=== PATIENT | female | born 1935 | race African-American/Black ===

== ENCOUNTER 2017-10-29 12:25 | Outpatient (CLI) | payer MEDICARE ==
[2017-10-29 14:11] LABS: #Basophils 0.1 thou/uL (0.0-0.2); #Eosinphils 0.2 thou/uL (0.0-0.7); #Lymphocytes 3.3 thou/uL (1.20-3.40); #Monocytes 0.6 thou/uL (0.11-0.59); #Neutrophils 3.9 thou/uL (1.40-6.50); %Basophils 1.1 % (0.0-1.0); %Eosinophils 2.5 % (0.0-10.0); %Lymphocytes 41.3 % (21.0-51.0); %Monocytes 7.2 % (0.0-10.0); Hemoglobin 12.1 g/dL (12.0-16.0); Mean Corpuscular HGB CONC 30.7 g/dL (32.0-36.0); Mean Corpuscular Hemoglobin 28.1 pg (27.0-31.0); Mean Corpuscular Volume 91.7 fl (81.0-99.0); Mean Platelet Volume 7.9 fL (7.4-10.4); Platelet Count 279 thou/uL (130-400); White Blood Cell (WBC) Count 8.1 thou/uL (4.8-10.8)
[2017-10-29 14:16] LABS: Bilirubin Negative (Negative); Blood, Urine Negative (Negative); Clarity CLOUDY (Clear); Glucose, Urine (Dipstick) Negative (Negative); Leukocyte Moderate (Negative); Nitrite Positive (Negative); Protein, Urine (Dipstick) Negative (Neg-Trace); Specific Gravity, Urine 1.019 (1.002-1.036); Urobilinogen 0.2 mg/dL (0.2-1.0); pH, Urine 5.5 (5.0-9.0)
[2017-10-29 14:18] LABS: INR-International Normal Ratio 1.2; Prothrombin Time 14.9 SEC (12.0-14.7)
[2017-10-29 14:21] LABS: Bacteria/HPF 4+ HPF (None Seen); Hyaline Casts/LPF 0-3 HYALINE CAST LPF (0-3 Hyaline); RBC/HPF 0-3 HPF (0-3); Squamous Epithelial 0-3 HPF (0-3); WBC/HPF 21-50 HPF (0-3)
[2017-10-29 14:42] LABS: Anion Gap 12 mmol/L (10-20); BUN (Urea Nitrogen) 9 mg/dL (9.8-20.1); Calc. Creatinine Clearance 0 mL/min (70-130); Calcium 9.8 mg/dL (7.8-10.44); Carbon Dioxide 23 mmol/L (23-31); Chloride 108 mmol/L (98-107); Estimated GFR-MDRD 78; Glucose 86 mg/dL (83-110); Potassium 4.1 mmol/L (3.5-5.1); Sodium 139 mmol/L (136-145)
== END 2017-10-29 12:26 | disposition home or self-care (01) ==
LOC: LABBT 12:25
PROVIDERS: ATTEND Orthopaedic Surgery
DX: Z01.812 Encounter for preprocedural laboratory examination (principal); Z01.818 Encounter for other preprocedural examination; M16.0 Bilateral primary osteoarthritis of hip
CPT/HCPCS: 80048; 81001; 85025; 85610; 87081; 93005; 93010

== ENCOUNTER 2018-05-08 13:03 | Outpatient (CLI) | payer MEDICARE ==
[2018-05-08 14:28] LABS: Bilirubin Negative (Negative); Blood, Urine Negative (Negative); Clarity CLEAR (Clear); Glucose, Urine (Dipstick) Negative (Negative); Leukocyte Small (Negative); Mean Corpuscular HGB CONC 31.5 g/dL (32.0-36.0); Mean Corpuscular Hemoglobin 27.2 pg (27.0-31.0); Mean Corpuscular Volume 86.3 fL (78.0-98.0); Mean Platelet Volume 8.5 fL (7.4-10.4); Nitrite Negative (Negative); Platelet Count 292 thou/uL (130-400); Protein, Urine (Dipstick) Negative (Neg-Trace); Red Blood Cell (RBC) Count 4.39 mill/uL (4.20-5.40); Specific Gravity, Urine 1.004 (1.002-1.036); Urobilinogen 0.2 mg/dL (0.2-1.0); White Blood Cell (WBC) Count 7.3 thou/uL (4.8-10.8); pH, Urine 6.5 (5.0-9.0)
[2018-05-08 14:29] LABS: Bacteria/HPF 4+ HPF (None Seen); Hyaline Casts/LPF 0-3 HYALINE CAST LPF (0-3 Hyaline); RBC/HPF 0-3 HPF (0-3); Squamous Epithelial 0-3 HPF (0-3)
[2018-05-08 14:35] LABS: Prothrombin Time 13.6 SEC (12.0-14.7)
[2018-05-08 14:46] LABS: Anion Gap 13 mmol/L (10-20); BUN (Urea Nitrogen) 12 mg/dL (9.8-20.1); Calc. Creatinine Clearance 0 mL/min (70-130); Calcium 9.7 mg/dL (7.8-10.44); Carbon Dioxide 25 mmol/L (23-31); Chloride 107 mmol/L (98-107); Estimated GFR-MDRD 67; Glucose 81 mg/dL (83-110); Potassium 4.2 mmol/L (3.5-5.1); Sodium 141 mmol/L (136-145)
== END 2018-05-08 13:04 | disposition home or self-care (01) ==
LOC: LABBT 13:03
PROVIDERS: ATTEND Orthopaedic Surgery
DX: Z01.812 Encounter for preprocedural laboratory examination (principal); M16.11 Unilateral primary osteoarthritis, right hip
CPT/HCPCS: 80048; 81001; 85027; 85610; 86850; 86900; 86901; 87081

== ENCOUNTER 2018-05-13 05:35 | Inpatient (IN) | payer MEDICARE ==
[2018-05-08 13:24] VITALS: BMI 26.1
[2018-05-13] MEDS ORDERED: Midazolam HCl 2 mg/2 ml Vial ONE (06:35)
[2018-05-13] MEDS ORDERED: Fentanyl 100 MCG/2 ML VIAL ONE ×4 (06:35→12:12)
[2018-05-13] MEDS ORDERED: Levofloxacin 500 mg/D5W 100 ml Premix Bag ONE (06:49)
[2018-05-13] MEDS ORDERED: CEFAZOLIN/Water 2 GM/20 ML SYRINGE ONE (06:53)
[2018-05-13] MEDS ORDERED: Lidocaine 1% (PF) 30 ML VIAL ONE (07:25)
[2018-05-13] MEDS ORDERED: PROPOFOL 20 ML ONE (07:25)
[2018-05-13] MEDS ORDERED: Succinylcholine Chloride 20 MG/ML 10 ml SYRINGE FS ONE ×2 (07:26→14:20)
[2018-05-13] MEDS ORDERED: HYDROmorphone 2 MG/ML VIAL ONE (07:31)
[2018-05-13 08:55] LABS: Bilirubin Negative (Negative); Blood, Urine Negative (Negative); Clarity CLEAR (Clear); Glucose, Urine (Dipstick) Negative (Negative); Leukocyte Trace (Negative); Nitrite Positive (Negative); Protein, Urine (Dipstick) Negative (Neg-Trace); Specific Gravity, Urine 1.017 (1.002-1.036); Urobilinogen 0.2 mg/dL (0.2-1.0); pH, Urine 5.5 (5.0-9.0)
[2018-05-13 08:57] LABS: Bacteria/HPF 4+ HPF (None Seen); Hyaline Casts/LPF 0-3 HYALINE CAST LPF (0-3 Hyaline); RBC/HPF None Seen HPF (0-3); Squamous Epithelial 0-3 HPF (0-3); WBC/HPF 0-3 HPF (0-3)
[2018-05-13] MEDS ORDERED: Tranexamic Acid 1,000 MG in Sodium Chloride 0.9% 100 ML IVPB SCH (10:15)
--- NOTE | 2018-05-13 11:05 | OP ---
DATE OF PROCEDURE: 05/13/2018 PREOPERATIVE DIAGNOSIS: Right hip osteoarthritis. POSTOPERATIVE DIAGNOSES: 1. Right hip osteoarthritis. 2. Greater trochanter fracture. PROCEDURE PERFORMED: 1. Right total hip arthroplasty. 2. Open reduction internal fixation right greater trochanter fracture. STAFF: Kasi Oconnor M.D. WINE CELLAR STOCK CLERK: Luis Melchor PA-C ANESTHESIA: Mayorga. The patient received a general endotracheal intubation. ESTIMATED BLOOD LOSS: 100 mL. TOURNIQUET TIME: None. IMPLANTS: A Jenn 52 mm cluster acetabular shell size 4 Accolade femur. A 10 degree Trident 36 mm polyethylene insert, 36 mm -5 femoral head and a Dall- Miles trochanteric plate with 2 cables side plate. COMPLICATIONS: Greater trochanter fracture; intraoperative complication HISTORY OF PRESENT ILLNESS: Ms. Gonzalez is an 83-year-old female who presented to me with right hip pain. She has had hip pain for years. She had a preoperative clearance by Cardiology. I discussed with the patient for surgery, the risks and benefits of a total hip arthroplasty to include scar, bleeding, infection, damage to vital structures, decreased range of motion or strength, continued pain despite surgical intervention, damage to vital structures, failure of procedure, loss of life or limb. The patient understood the risks and benefits and elected to proceed. PROCEDURE IN DETAIL: Timeout was performed designating the patient's right hip as the operative site based on site, consents, markings. After completion of timeout the patient was placed in lateral position with bony prominences well padded. She had a Cheng inserted. The right lower extremity was prepped and draped in sterile fashion. Lateral incision, came down through skin, down to the IT band, took down the gluteus medius and minimus, T'd the capsule, excised the capsule, dislocated the hip, cut the femoral head, gave myself a half a finger off of the lesser trochanter. We then removed the head, cleaned the labrum off the acetabulum, sequentially reamed up to 52 and 5, placed a 52 mm cup with a 36 10-degree Trident X3 poly liner. We then moved to the femur. We knocked off some inferior osteophyte to help with no risk of reduction. After we knocked the inferior osteophytes came down to transverse ligament. We removed those, we moved to our femur. We broached, starting up at 0, moving up to a 4 over sunk. We reduced it, felt like we had a good reduction of the calcar plane once and then again and I think during the calcar planing that there might have been a crack that formed in the greater trochanter which propagated, which was not noticed until we placed our final implant in place, reduced it into position. There was some instability; therefore I came back, we first put a Dall-Miles cable and claw which was too anterior, I felt like it was impinging, I took it off and took a more lateral one and ran down the side. I passed the wire under the lessor trochantor for thethe top wire and placed a second wire distally down in the shaft. I felt like we had good abutment, good stability with the cables. We then had reduced the hip, tightened it down and reduced and tied down the Dall-Miles cable, cut the cables. We then closed the gluteus minimus in the remnant and through the claw that we had gluteus love. We closed, to make sure we were able to get it to close over the top. We closed down to the entire soft tissue envelope. We then closed the IT band with #2 Quill and glue. We then closed the IT band with #2 Vicryl and #2 Quill, 0 Quill, 2-0 Quill and glue. The patient will be weightbearing as tolerated. The patient will be followed in -house. DEMOND
[2018-05-13] MEDS ORDERED: Promethazine HCl 25 MG/ML VIAL IM PRN ×3 (11:13→13:36)
[2018-05-13] MEDS ORDERED: Ondansetron HCl/PF 4 MG/2 ML Vial IVP PRN ×3 (11:13→13:36)
[2018-05-13] MEDS ORDERED: Promethazine HCl 25 MG/ML VIAL SLOW IVP PRN (11:13)
[2018-05-13] MEDS ORDERED: Acetaminophen 500 MG TAB PO PRN (12:24)
[2018-05-13] MEDS ORDERED: Hydrocerin (Eucerin) Cream 120 gm Jar TOP PRN (12:30)
[2018-05-13] MEDS ORDERED: diphenhydrAMINE 50 MG/ML VIAL IM PRN (12:30)
[2018-05-13] MEDS ORDERED: Zolpidem Tartrate 5 MG TAB PO PRN ×2 (12:30→13:36)
[2018-05-13] MEDS ORDERED: Promethazine HCl 25 MG SUPP PR PRN (12:30)
[2018-05-13] MEDS ORDERED: traMADol HCl 50 MG TAB PO PRN ×2 (12:30→13:36)
[2018-05-13] MEDS ORDERED: diphenhydrAMINE 50 MG/ML VIAL IVP PRN (12:30)
[2018-05-13] MEDS ORDERED: diphenhydrAMINE 25 MG CAP PO PRN ×2 (12:30→13:36)
[2018-05-13] MEDS ORDERED: Naloxone HCl 0.4 mg/ml Vial IVP PRN (12:30)
[2018-05-13] MEDS ORDERED: fentaNYL Citrate/PF 1,250 MCG, Bupivacaine 25 ML in Sodium Chloride 0.9% 250 ML 200 ML EPIDURAL SCH (12:30)
[2018-05-13] MEDS ORDERED: Bupivacaine 0.25% 10 ML VIAL EPIDURAL PRN (12:30)
[2018-05-13] MEDS ORDERED: Naloxone HCl 0.4 mg/ml Vial IV PRN (12:30)
--- NOTE | 2018-05-13 12:46 | RAD ---
PORTABLE RIGHT HIP SINGLE VIEW: FINDINGS: There are postop changes of total hip arthroplasty in the right hip, in good position and alignment. POS: [facility]
--- NOTE | 2018-05-13 12:49 | RAD ---
AP PELVIS ONE VIEW: History: 82-year-old female with history of pain since June, without trauma. FINDINGS: Total right hip replacement. Significant arthrosis and degenerative changes left hip joint. No eviden ce for dislocation or periprosthetic fracture seen on this single AP pelvis. IMPRESSION: Right total hip replacement without dislocation or overt periprosthetic fracture. No prior post hip r eplacement exams are available. POS: [facility]
[2018-05-13] MEDS ORDERED: Ferrous Gluconate 324 MG TAB PO SCH ×2 (13:36→14:30)
[2018-05-13] MEDS ORDERED: HYDROcodone/Acetaminophen 10/325 mg Tablet PO PRN ×2 (13:36)
[2018-05-13] MEDS ORDERED: Senokot S 8.6-50 MG TAB PO SCH ×2 (13:36→15:00)
[2018-05-13] MEDS ORDERED: Acetaminophen 325 MG TAB PO PRN (13:36)
[2018-05-13] MEDS ORDERED: Fentanyl 100 MCG/2 ML VIAL SLOW IVP PRN ×2 (13:36)
[2018-05-13] MEDS ORDERED: Aspirin 81 mg Enteric Coated Tablet PO SCH ×2 (13:36→14:30)
[2018-05-13] MEDS ORDERED: Multivitamin W/ Minerals 1 TAB PO SCH ×2 (13:36→15:00)
[2018-05-13] MEDS ORDERED: Bupivacaine HCl 0.5%/Epinephrine 1:200,000/PF 30 ml Vial ONE (13:40)
[2018-05-13] MEDS ORDERED: Ondansetron HCl/PF 4 MG/2 ML Vial ONE (14:20)
[2018-05-13] MEDS ORDERED: PROPOFOL 200 MG/20 ML VIAL ONE (14:20)
[2018-05-13] MEDS ORDERED: Dexamethasone 20 MG/5 ML VIAL ONE (14:20)
[2018-05-13] MEDS ORDERED: Lidocaine 1% PF 5 ML VIAL ONE (14:20)
[2018-05-13] MEDS ORDERED: PHENYLEPHRINE-NS 100 MCG/ML 10 ML SYRINGE ONE (14:20)
--- NOTE | 2018-05-13 15:39 | EKG ---
Test Reason : PREOP Blood Pressure : / mmHG Vent. Rate : 074 BPM Atrial Rate : 074 BPM P-R Int : 180 ms QRS Dur : 088 ms QT Int : 392 ms P-R-T Axes : 078 -02 035 degrees QTc Int : 435 ms Sinus rhythm with Premature atrial complexes and Premature ventricular complexes or Fusion complexes Otherwise normal ECG When compared with ECG of 29-OCT-2017 12:31, Fusion complexes are now Present Premature ventricular complexes are now Present Premature atrial complexes are now Present Borderline criteria for Anterior infarct are no longer Present Confirmed by MAYELA WIN, DR. Will (4) on 05/13/2018 3:38:51 PM Referred By: MICHAEL Confirmed By:DR. Suman PEDRO MD
[2018-05-13] MEDS: CEFAZOLIN/Water 2 GM/20 ML SYRINGE SLOW IVP SCH ×2 (16:25→23:31)
[2018-05-13] MEDS ORDERED: hydrALAZINE 20 MG/ML VIAL SLOW IVP PRN (17:01)
[2018-05-13] MEDS: Potassium Chloride 10 MEQ TAB PO SCH (17:26)
[2018-05-13] MEDS: Ketorolac Tromethamine 30 MG/ML VIAL IVP SCH (17:27)
--- NOTE | 2018-05-13 17:32 | PRG ---
DATE OF SERVICE: 05/13/2018 PRIMARY CARE PHYSICIAN: Dr. Gonzalez. PRIMARY WARRANTY CLERK: Dr. Cristobal Lowery. SUBJECTIVE: The patient denies any new complaints. Pain is controlled with current pain regimen. No chest pain, shortness of breath or palpitations. OBJECTIVE: VITAL SIGNS: Temperature 94.6, pulse rate of 67, blood pressure 126/62 with O2 saturation 100% on room air. GENERAL: This is an 83-year-old female, in no apparent distress. LUNGS: Clear to auscultation bilaterally. No wheezing, rales, rhonchi. NECK: No JVD, no carotid bruit. HEART: S1, S2 present. Regular rate and rhythm. No heaves or pulsation. EXTREMITIES: No edema or calf tenderness. NEUROLOGIC: Grossly nonfocal. LABORATORY AND X-RAY FINDINGS: 1. CBC showed WBC 7.3 with hemoglobin 12, hematocrit 37.9, platelet 292. 2. Chemistries showed sodium 141, potassium 4.2, chloride 107, bicarbonate 25, BUN 12, creatinine 0.96. 3. X-ray of the right hip showed postoperative changes. 4. EKG by my review showed sinus rhythm with PACs and PVCs. IMPRESSION: 1. Status post right total hip arthroplasty. 2. Hypertension. We will continue amlodipine 5 mg daily along with Losartan 50 mg daily. 3. Chronic kidney disease, stage 2. 4. Coronary artery disease, mild. The patient had a cardiac catheterization in 01/2018 that showed 20% proximal LAD lesion with 55% ejection fraction. We will continue aspirin. 5. DM2 - diet controlled 6. Anxiety. 7. Osteoporosis. Plan of care was discussed with the patient and the family in detail. They stated understanding. Thank you Dr. Oconnor for this consultation. We will follow with you. Full code. DPOA - self/family MTDD
[2018-05-13] MEDS: traMADol HCl 50 MG TAB PO PRN (18:16)
[2018-05-13] MEDS ORDERED: Vancomycin HCl 1.5 GM in Sodium Chloride 0.9% 250 ML 300 ML IVPB SCH (19:00)
[2018-05-13] MEDS: Dextrose 5 %-0.45 % NaCl 1,000 ML IV SCH (19:32)
[2018-05-13] MEDS: Aspirin 81 mg Enteric Coated Tablet PO SCH (20:54)
[2018-05-13] MEDS: Ferrous Gluconate 324 MG TAB PO SCH (20:54)
[2018-05-13] MEDS: Senokot S 8.6-50 MG TAB PO SCH (20:54)
[2018-05-14] MEDS: Dextrose 5 %-0.45 % NaCl 1,000 ML IV SCH ×3 (00:51→18:49)
[2018-05-14] MEDS: Ketorolac Tromethamine 30 MG/ML VIAL IVP SCH ×5 (00:53→23:25)
[2018-05-14 05:02] LABS: Hemoglobin 9.2 g/dL (12.0-16.0); Mean Corpuscular HGB CONC 31.1 g/dL (32.0-36.0); Mean Corpuscular Hemoglobin 26.8 pg (27.0-31.0); Mean Corpuscular Volume 86.2 fL (78.0-98.0); Mean Platelet Volume 8.3 fL (7.4-10.4); Platelet Count 205 thou/uL (130-400); RBC Distribution Width 12.1 % (11.5-14.5); Red Blood Cell (RBC) Count 3.42 mill/uL (4.20-5.40); White Blood Cell (WBC) Count 12.3 thou/uL (4.8-10.8)
[2018-05-14 05:19] LABS: Magnesium 1.8 mg/dL (1.6-2.6); Phosphorus 4.2 mg/dL (2.3-4.7); Potassium 4.1 mmol/L (3.5-5.1)
[2018-05-14] MEDS: Ferrous Gluconate 324 MG TAB PO SCH ×2 (08:05→23:24)
[2018-05-14] MEDS: Senokot S 8.6-50 MG TAB PO SCH ×2 (08:06→21:30)
[2018-05-14] MEDS: Losartan 25 MG TAB PO SCH (08:06)
[2018-05-14] MEDS: Multivitamin W/ Minerals 1 TAB PO SCH (08:07)
[2018-05-14] MEDS: Aspirin 81 mg Enteric Coated Tablet PO SCH ×2 (08:07→21:08)
[2018-05-14] MEDS: Potassium Chloride 10 MEQ TAB PO SCH ×2 (08:07→17:11)
[2018-05-14] MEDS: Amlodipine 5 MG TAB PO SCH (08:07)
[2018-05-14] MEDS ORDERED: Multivit, Therapeutic 1 TAB PO SCH (09:00)
--- NOTE | 2018-05-14 12:20 | PDOC.PN ---
- Subjective Encounter Start Date: 05/14/18 Encounter Start Time: 12:18 Subjective: feels well. just walked w PT and now sleepy -: no CP/SOB/Abd pain/N/V - Objective MAR Reviewed: Yes Vital Signs & Weight: Vital Signs (12 hours) Temp Pulse Resp BP BP Pulse Ox 05/14/18 11:54 98.1 F 76 15 114/64 92 L 05/14/18 08:28 98.9 F 99 14 126/61 92 L 05/14/18 08:07 88 126/61 92 L Weight Admit Weight 172 lb Weight 172 lb I&O: 05/13/18 05/14/18 05/15/18 06:59 06:59 06:59 Intake Total 1825 Output Total 825 Balance 1000 Result Diagrams: 05/14/18 03:54 05/14/18 03:54 Additional Labs: Accuchecks 05/14/18 05/14/18 05/13/18 10:43 05:07 21:06 POC Glucose 137 H 128 H 114 H Laboratory Tests 05/13/18 05/14/18 05/14/18 21:06 03:54 05:07 POC Glucose 114 H 128 H Phosphorus 4.2 Magnesium 1.8 05/14/18 10:43 POC Glucose 137 H Phosphorus Magnesium Phys Exam - Physical Examination Constitutional: NAD HEENT: PERRLA, moist MMs, sclera anicteric, oral pharynx no lesions Neck: no nodes, no JVD, supple, full ROM Respiratory: no wheezing, no rales, no rhonchi, clear to auscultation bilateral Cardiovascular: RRR, no significant murmur, no rub Gastrointestinal: soft, non-tender, no distention, positive bowel sounds Musculoskeletal: no edema, pulses present Neurological: non-focal, normal sensation, moves all 4 limbs Psychiatric: normal affect, A&O x 3 Skin: no rash Dx/Plan (1) UTI (urinary tract infection) Status: Acute (2) Postoperative anemia due to acute blood loss Code(s): D62 - ACUTE POSTHEMORRHAGIC ANEMIA Status: Acute (3) S/P total hip arthroplasty Code(s): Z96.649 - PRESENCE OF UNSPECIFIED ARTIFICIAL HIP JOINT Status: Acute Qualifiers: Laterality: right Qualified Code(s): Z96.641 - Presence of right artificial hip joint (4) CAD (coronary artery disease) Code(s): I25.10 - ATHSCL HEART DISEASE OF [place] CORONARY ARTERY W/O ANG PCTRS Status: Chronic (5) HTN (hypertension) Code(s): I10 - ESSENTIAL (PRIMARY) HYPERTENSION Status: Chronic (6) DM2 (diabetes mellitus, type 2) Status: Chronic Qualifiers: Diabetes mellitus complication status: with hyperglycemia - Plan plan discussed w/ family, PT/OT, out of bed/ambulate, DVT proph w/SCDs Cipro BID . send urine for Culture -: cont Lisinopril and amlodipine. BP controlled -: Cont ISS. accuchecks achs. -: ASA BID for DVT prophylaxis. IM team will follow -: AM H/H.Hemodynamicallyu stable * . Review of Systems - Review of Systems Constitutional: negative: fever, chills, sweats, weakness, malaise, other ENT: negative: Ear Pain, Ear Discharge, Nose Pain, Nose Discharge, Nose Congestion, Mouth Pain, Mouth Swelling, Throat Pain, Throat Swelling, Other Respiratory: negative: Cough, Dry, Shortness of Breath, Hemoptysis, SOB with Excertion, Pleuritic Pain, Sputum, Wheezing Cardiovascular: negative: chest pain, palpitations, orthopnea, paroxysmal nocturnal dyspnea, edema, light headedness, other Gastrointestinal: negative: Nausea, Vomiting, Abdominal Pain, Diarrhea, Constipation, Melena, Hematochezia, Other Genitourinary: negative: Dysuria, Frequency, Incontinence, Hematuria, Retention , Other Musculoskeletal: negative: Neck Pain, Shoulder Pain, Arm Pain, Back Pain, Hand Pain, Leg Pain, Foot Pain, Other Neurological: negative: Weakness, Numbness, Incoordination, Change in Speech, Confusion, Seizures, Other - Medications/Allergies Allergies/Adverse Reactions: Allergies Allergy/AdvReac Type Severity Reaction Status Date / Time clindamycin Allergy Verified 05/08/18 13:24 Penicillins Allergy Verified 05/08/18 13:24 sulfamethoxazole Allergy Verified 05/08/18 13:24 [From ] trimethoprim [From ] Allergy Verified 05/08/18 13:24 Medications: Current Medications Acetaminophen (Tylenol) 650 mg PO Q4H PRN PRN Reason: REES/ T > 101F; Mild Pain (1-3) Amlodipine Besylate (Norvasc) 5 mg PO DAILY [facility] Last Admin: 05/14/18 08:07 Dose: 5 mg Aspirin (Ecotrin) 81 mg PO BID [facility] Last Admin: 05/14/18 08:07 Dose: 81 mg Ciprofloxacin (Cipro) 500 mg PO [facility] Stop: 05/19/18 20:01 Diphenhydramine HCl (Benadryl) 25 mg IM Q3H PRN PRN Reason: Itching Diphenhydramine HCl (Benadryl) 25 mg IVP Q3H PRN PRN Reason: Itching Diphenhydramine HCl (Benadryl) 25 mg PO Q6H PRN PRN Reason: Itching Emollient Cream (Hydrocerin Cream) 0 gm TOP PRN PRN PRN Reason: Itching Ferrous Gluconate (Fergon) 324 mg PO BID [facility] Last Admin: 05/14/18 08:05 Dose: 324 mg Hydralazine HCl (Apresoline) 10 mg SLOW IVP Q4H PRN PRN Reason: SBP Greater Than 180 Fentanyl Citrate 1,250 mcg/Bupivacaine HCl 25 ml/ Sodium Chloride 250 mls @ 0 mls/hr EPIDURAL INF [facility] Dextrose/Sodium Chloride (D5 1/2 Ns) 1,000 mls @ 100 mls/hr IV .Q10H [facility] Last Admin: 05/14/18 11:50 Dose: Not Given Iron/Minerals/Multivitamins (Theragran M) 1 tab PO DAILY [facility] Last Admin: 05/14/18 08:07 Dose: 1 tab Ketorolac Tromethamine (Toradol) 15 mg IVP Q6HR [facility] Stop: 05/15/18 12:01 Last Admin: 05/14/18 12:00 Dose: 15 mg Losartan Potassium (Cozaar) 50 mg PO DAILY [facility] Last Admin: 05/14/18 08:06 Dose: 50 mg Miscellaneous Information (Communication Order-Pharmacy) 1 each FS ASDIR [facility] Naloxone HCl (Narcan) 0.2 mg IV Q5MIN PRN PRN Reason: RR <=8 OR OBTUNDED/UNAROUSABLE Naloxone HCl (Narcan) 0.1 mg IVP Q15MIN PRN PRN Reason: URINARY RETENTION Ondansetron HCl (Zofran) 4 mg IVP Q6H PRN PRN Reason: Nausea/Vomiting Last Admin: 05/14/18 08:55 Dose: 4 mg Potassium Chloride (Klor-Con 10) 10 meq PO BID-[facility] Last Admin: 05/14/18 08:07 Dose: 10 meq Promethazine HCl (Phenergan Suppository) 25 mg [place] Q4H PRN PRN Reason: Nausea/Vomiting Promethazine HCl (Phenergan) 12.5 mg IM Q4H PRN PRN Reason: Nausea/Vomiting Senna/Docusate Sodium (Senokot S) 2 tab PO BID [facility] Last Admin: 05/14/18 08:06 Dose: 2 tab Sodium Chloride (Flush - Normal Saline) 10 ml IVF Q12HR [facility] Last Admin: 05/14/18 08:42 Dose: Not Given Sodium Chloride (Flush - Normal Saline) 10 ml IVF PRN PRN PRN Reason: Saline Flush Last Admin: 05/14/18 06:54 Dose: 10 ml Tramadol HCl (Ultram) 50 mg PO Q6H PRN PRN Reason: Mild Pain 1-3 Tramadol HCl (Ultram) 100 mg PO Q6H PRN PRN Reason: Moderate Pain 4-6 Last Admin: 05/13/18 18:16 Dose: 100 mg Zolpidem Tartrate (Ambien) 5 mg PO HSPRN PRN PRN Reason: Insomnia
[2018-05-14] MEDS ORDERED: Furosemide 20 MG TAB PO SCH (19:00)
[2018-05-14] MEDS: Ciprofloxacin 500 MG TAB PO SCH (21:07)
[2018-05-15] MEDS: Ciprofloxacin 500 MG TAB PO SCH ×2 (06:00→20:55)
[2018-05-15] MEDS: Ketorolac Tromethamine 30 MG/ML VIAL IVP SCH ×2 (06:01→12:12)
[2018-05-15 06:04] LABS: Hemoglobin 8.9 g/dL (12.0-16.0); Mean Corpuscular HGB CONC 31.9 g/dL (32.0-36.0); Mean Corpuscular Hemoglobin 27.6 pg (27.0-31.0); Mean Corpuscular Volume 86.5 fL (78.0-98.0); Mean Platelet Volume 8.3 fL (7.4-10.4); Platelet Count 182 thou/uL (130-400); RBC Distribution Width 12.2 % (11.5-14.5); Red Blood Cell (RBC) Count 3.23 mill/uL (4.20-5.40); White Blood Cell (WBC) Count 13.2 thou/uL (4.8-10.8)
[2018-05-15 06:31] LABS: Anion Gap 11 mmol/L (10-20); BUN (Urea Nitrogen) 22 mg/dL (9.8-20.1); Calc. Creatinine Clearance 47 mL/min (70-130); Calcium 8.5 mg/dL (7.8-10.44); Carbon Dioxide 21 mmol/L (23-31); Chloride 106 mmol/L (98-107); Estimated GFR-MDRD 56; Glucose 123 mg/dL (83-110); Sodium 134 mmol/L (136-145)
[2018-05-15] MEDS: Multivitamin W/ Minerals 1 TAB PO SCH (08:35)
[2018-05-15] MEDS: Amlodipine 5 MG TAB PO SCH (08:35)
[2018-05-15] MEDS: Senokot S 8.6-50 MG TAB PO SCH ×2 (08:35→21:23)
[2018-05-15] MEDS: Aspirin 81 mg Enteric Coated Tablet PO SCH ×2 (08:36→21:23)
[2018-05-15] MEDS: Potassium Chloride 10 MEQ TAB PO SCH ×2 (08:36→16:51)
[2018-05-15] MEDS: Losartan 25 MG TAB PO SCH (08:36)
[2018-05-15] MEDS: Ferrous Gluconate 324 MG TAB PO SCH ×2 (08:36→21:23)
[2018-05-15] MEDS: Dextrose 5 %-0.45 % NaCl 1,000 ML IV SCH ×2 (10:05→19:18)
--- NOTE | 2018-05-15 13:14 | PQF ---
DEBORA EM JUSTIN MD [id number] SURG A- [id number] CLINICAL DOCUMENTATION IMPROVEMENT CLARIFICATION FORM: ICD-10 Updated PLEASE DO AN ADDENDUM TO THE PROGRESS NOTE WITH ANY DOCUMENTATION UPDATES OR ADDITIONS AND CARRY THROUGH TO DC SUMMARY. THANK YOU. DATE: 05-15-18 ATTN: DR. SANTOS / SUNIL ELKINS PA-C Please exercise your independent, professional judgment in responding to the clarification form. Clinical indicators are provided on the bottom of this form for your review Please check appropriate box(s): Type of fracture: Check all that apply [ ] Right Greater Trochanter Fracture Expected complication of Right THR due to osteoporosis [ ] Right Greater Trochanter Fracture Not Expected Complication of Right THR due to osteoporosis [ ] Right Greater Trochanter Fracture Expected Complication of Right THR [ ] Right Greater Trochanter Fracture Not Expected complication of Right THR For continuity of documentation, please document condition throughout progress notes and discharge summary. Thank You. CLINICAL INDICATORS - SIGNS / SYMPTOMS / LABS - OP NOTE: "I THINK DURING THE CALCAR PLANING THAT THERE MIGHT HAVE BEEN A CRACK THAT FORMED IN THE GREATER TROCHANTER WHICH PROPAGATED, WHICH WAS NOT NOTICED UNITL WE PLACED OR FINAL IMLANT IN PLACE, REDUCED IT INTO POSITION. RISK FACTORS 05-13 (LADHA) OSTEOPOROSIS TREATMENTS: 05-13 OP NOTE: ORIF RIGHT GREATER TROCHANTER FRACTURE THANK YOU, SHARLENE (This form is maintained as a part of the permanent medical record) 2014 [employer]. All Rights Reserved Sharlene Gonzalez RN, BS [email or web address] [employer] [facility]
--- NOTE | 2018-05-15 13:32 | PDOC.PN ---
- Subjective Encounter Start Date: 05/15/18 Encounter Start Time: 13:30 Subjective: feels well. denies any abd pain,nausea/vomiting - Objective MAR Reviewed: Yes Vital Signs & Weight: Vital Signs (12 hours) Temp Pulse Resp BP BP Pulse Ox 05/15/18 11:40 98.3 F 77 16 102/62 93 L 05/15/18 08:35 88 127/65 05/15/18 07:59 99.1 F 86 15 127/65 94 L 05/15/18 07:37 94 L 05/15/18 04:22 99.5 F 95 20 123/63 95 Weight Admit Weight 172 lb Weight 172 lb I&O: 05/14/18 05/15/18 05/16/18 06:59 06:59 06:59 Intake Total 1825 2200 Output Total 825 675 Balance 1000 1525 Result Diagrams: 05/15/18 05:08 05/15/18 05:08 Additional Labs: Accuchecks 05/15/18 05/15/18 05/14/18 10:29 05:53 20:55 POC Glucose 140 H 122 H 109 05/14/18 15:46 POC Glucose 120 H Microbiology 05/14/18 08:45 Urine clean catch Urine Culture - Preliminary Gram Negative René Phys Exam - Physical Examination Constitutional: NAD sitting up in chair HEENT: PERRLA, moist MMs, sclera anicteric, oral pharynx no lesions Neck: no nodes, no JVD, supple, full ROM Respiratory: no wheezing, no rales, no rhonchi, clear to auscultation bilateral Cardiovascular: RRR, no significant murmur Gastrointestinal: soft, non-tender, no distention, positive bowel sounds Musculoskeletal: no edema, pulses present Neurological: non-focal, normal sensation, moves all 4 limbs Psychiatric: normal affect, A&O x 3 Skin: no rash Dx/Plan (1) UTI (urinary tract infection) Status: Acute Comment: GNR in culture (2) Postoperative anemia due to acute blood loss Code(s): D62 - ACUTE POSTHEMORRHAGIC ANEMIA Status: Acute (3) S/P total hip arthroplasty Code(s): Z96.649 - PRESENCE OF UNSPECIFIED ARTIFICIAL HIP JOINT Status: Acute Qualifiers: Laterality: right Qualified Code(s): Z96.641 - Presence of right artificial hip joint (4) CAD (coronary artery disease) Code(s): I25.10 - ATHSCL HEART DISEASE OF [place] CORONARY ARTERY W/O ANG PCTRS Status: Chronic (5) HTN (hypertension) Code(s): I10 - ESSENTIAL (PRIMARY) HYPERTENSION Status: Chronic (6) DM2 (diabetes mellitus, type 2) Status: Chronic Qualifiers: Diabetes mellitus complication status: with hyperglycemia - Plan continue antibiotics, PT/OT, out of bed/ambulate, DVT proph w/SCDs monitor H/H. no indication for transfusion yet. -: cont Abx for UTI. final Sensitivities pending -: BP controlled. -: Cr slightly high due to poor PO intake. on IVF.recheck in am * . Review of Systems - Review of Systems Constitutional: weakness. negative: fever, chills, sweats, malaise, other Eyes: negative: Pain, Vision Change, Conjunctivae Inflammation, Eyelid Inflammation, Redness, Other ENT: negative: Ear Pain, Ear Discharge, Nose Pain, Nose Discharge, Nose Congestion, Mouth Pain, Mouth Swelling, Throat Pain, Throat Swelling, Other Respiratory: negative: Cough, Dry, Shortness of Breath, Hemoptysis, SOB with Excertion, Pleuritic Pain, Sputum, Wheezing Cardiovascular: negative: chest pain, palpitations, orthopnea, paroxysmal nocturnal dyspnea, edema, light headedness, other Gastrointestinal: negative: Nausea, Vomiting, Abdominal Pain, Diarrhea, Constipation, Melena, Hematochezia, Other Genitourinary: negative: Dysuria, Frequency, Incontinence, Hematuria, Retention , Other Musculoskeletal: negative: Neck Pain, Shoulder Pain, Arm Pain, Back Pain, Hand Pain, Leg Pain, Foot Pain, Other Neurological: negative: Weakness, Numbness, Incoordination, Change in Speech, Confusion, Seizures, Other - Medications/Allergies Allergies/Adverse Reactions: Allergies Allergy/AdvReac Type Severity Reaction Status Date / Time clindamycin Allergy Verified 05/08/18 13:24 Penicillins Allergy Verified 05/08/18 13:24 sulfamethoxazole Allergy Verified 05/08/18 13:24 [From ] trimethoprim [From ] Allergy Verified 05/08/18 13:24 Medications: Current Medications Acetaminophen (Tylenol) 650 mg PO Q4H PRN PRN Reason: REES/ T > 101F; Mild Pain (1-3) Amlodipine Besylate (Norvasc) 5 mg PO DAILY [facility] Last Admin: 05/15/18 08:35 Dose: 5 mg Aspirin (Ecotrin) 81 mg PO BID [facility] Last Admin: 05/15/18 08:36 Dose: 81 mg Ciprofloxacin (Cipro) 500 mg PO [facility] Stop: 05/19/18 20:01 Last Admin: 05/15/18 06:00 Dose: 500 mg Diphenhydramine HCl (Benadryl) 25 mg IM Q3H PRN PRN Reason: Itching Diphenhydramine HCl (Benadryl) 25 mg IVP Q3H PRN PRN Reason: Itching Diphenhydramine HCl (Benadryl) 25 mg PO Q6H PRN PRN Reason: Itching Emollient Cream (Hydrocerin Cream) 0 gm TOP PRN PRN PRN Reason: Itching Ferrous Gluconate (Fergon) 324 mg PO BID [facility] Last Admin: 05/15/18 08:36 Dose: 324 mg Hydralazine HCl (Apresoline) 10 mg SLOW IVP Q4H PRN PRN Reason: SBP Greater Than 180 Fentanyl Citrate 1,250 mcg/Bupivacaine HCl 25 ml/ Sodium Chloride 250 mls @ 0 mls/hr EPIDURAL INF [facility] Last Admin: 05/15/18 05:51 Dose: 250 mls Dextrose/Sodium Chloride (D5 1/2 Ns) 1,000 mls @ 100 mls/hr IV .Q10H [facility] Last Admin: 05/15/18 10:05 Dose: Not Given Iron/Minerals/Multivitamins (Theragran M) 1 tab PO DAILY [facility] Last Admin: 05/15/18 08:35 Dose: 1 tab Losartan Potassium (Cozaar) 50 mg PO DAILY [facility] Last Admin: 05/15/18 08:36 Dose: 50 mg Miscellaneous Information (Communication Order-Pharmacy) 1 each FS ASDIR [facility] Naloxone HCl (Narcan) 0.2 mg IV Q5MIN PRN PRN Reason: RR <=8 OR OBTUNDED/UNAROUSABLE Naloxone HCl (Narcan) 0.1 mg IVP Q15MIN PRN PRN Reason: URINARY RETENTION Ondansetron HCl (Zofran) 4 mg IVP Q6H PRN PRN Reason: Nausea/Vomiting Last Admin: 05/14/18 08:55 Dose: 4 mg Potassium Chloride (Klor-Con 10) 10 meq PO BID-[facility] Last Admin: 05/15/18 08:36 Dose: 10 meq Promethazine HCl (Phenergan Suppository) 25 mg [place] Q4H PRN PRN Reason: Nausea/Vomiting Promethazine HCl (Phenergan) 12.5 mg IM Q4H PRN PRN Reason: Nausea/Vomiting Senna/Docusate Sodium (Senokot S) 2 tab PO BID [facility] Last Admin: 05/15/18 08:35 Dose: 2 tab Sodium Chloride (Flush - Normal Saline) 10 ml IVF Q12HR [facility] Last Admin: 05/15/18 10:06 Dose: Not Given Sodium Chloride (Flush - Normal Saline) 10 ml IVF PRN PRN PRN Reason: Saline Flush Last Admin: 05/14/18 06:54 Dose: 10 ml Tramadol HCl (Ultram) 50 mg PO Q6H PRN PRN Reason: Mild Pain 1-3 Tramadol HCl (Ultram) 100 mg PO Q6H PRN PRN Reason: Moderate Pain 4-6 Last Admin: 05/13/18 18:16 Dose: 100 mg Zolpidem Tartrate (Ambien) 5 mg PO HSPRN PRN PRN Reason: Insomnia
[2018-05-16] MEDS: Dextrose 5 %-0.45 % NaCl 1,000 ML IV SCH (02:23)
[2018-05-16 04:52] LABS: Hemoglobin 8.5 g/dL (12.0-16.0); Mean Corpuscular HGB CONC 31.8 g/dL (32.0-36.0); Mean Corpuscular Hemoglobin 27.4 pg (27.0-31.0); Mean Corpuscular Volume 86.1 fL (78.0-98.0); Mean Platelet Volume 8.3 fL (7.4-10.4); Platelet Count 195 thou/uL (130-400); RBC Distribution Width 12.1 % (11.5-14.5); Red Blood Cell (RBC) Count 3.11 mill/uL (4.20-5.40); White Blood Cell (WBC) Count 11.9 thou/uL (4.8-10.8)
[2018-05-16] MEDS: Ciprofloxacin 500 MG TAB PO SCH (06:54)
[2018-05-16 08:22] VITALS: BP 119/69; TEMP 99.2
--- NOTE | 2018-05-16 08:55 | PQF ---
DEBORA EM JUSTIN MD [id number] SURG A- 3304 [id number] CLINICAL DOCUMENTATION IMPROVEMENT CLARIFICATION FORM: ICD-10 Updated PLEASE DO AN ADDENDUM TO THE PROGRESS NOTE WITH ANY DOCUMENTATION UPDATES OR ADDITIONS AND CARRY THROUGH TO DC SUMMARY. THANK YOU. DATE: 05-15-18 ATTN: DR. SANTOS / SUNIL ELKINS PA-C Please exercise your independent, professional judgment in responding to the clarification form. Clinical indicators are provided on the bottom of this form for your review Please check appropriate box(s): Type of fracture: Check all that apply [ ] Right Greater Trochanter Fracture Expected complication of Right THR due to osteoporosis [ ] Right Greater Trochanter Fracture Not Expected Complication of Right THR due to osteoporosis [ ] Right Greater Trochanter Fracture Expected Complication of Right THR [ ] Right Greater Trochanter Fracture Not Expected complication of Right THR [ ] Other Diagnosis [ ] Unable to Determine For continuity of documentation, please document condition throughout progress notes and discharge summary. Thank You. CLINICAL INDICATORS - SIGNS / SYMPTOMS / LABS 05-13 OP NOTE: "I THINK DURING THE CALCAR PLANING THAT THERE MIGHT HAVE BEEN A CRACK THAT FORMED IN THE GREATER TROCHANTER WHICH PROPAGATED, WHICH WAS NOT NOTICED UNTIL WE PLACED OR FINAL IMPLANT IN PLACE, REDUCED IT INTO POSITION. RISK FACTORS 05-13 (LADHA) OSTEOPOROSIS TREATMENTS: 05-13 OP NOTE: ORIF RIGHT GREATER TROCHANTER FRACTURE THANK YOU, SHARLENE (This form is maintained as a part of the permanent medical record) 2014 [employer]. All Rights Reserved Sahrlene Gonzalez RN, BS [email or web address] Cell [facility]
[2018-05-16] MEDS: Multivitamin W/ Minerals 1 TAB PO SCH (09:21)
[2018-05-16] MEDS: Aspirin 81 mg Enteric Coated Tablet PO SCH (09:21)
[2018-05-16] MEDS: Ferrous Gluconate 324 MG TAB PO SCH (09:21)
[2018-05-16] MEDS: Losartan 25 MG TAB PO SCH (09:21)
[2018-05-16] MEDS: Senokot S 8.6-50 MG TAB PO SCH (09:22)
[2018-05-16] MEDS: Potassium Chloride 10 MEQ TAB PO SCH (09:22)
[2018-05-16] MEDS: Amlodipine 5 MG TAB PO SCH (09:23)
[2018-05-16] MEDS: traMADol HCl 50 MG TAB PO PRN (09:24)
[2018-05-16] MEDS ORDERED: Ondansetron ODT 4 MG TAB SL PRN (10:10)
--- NOTE | 2018-05-16 15:26 | PDOC.EVN ---
Event Note - Event Note Event Note: Pt discharged prior to my evaluation by primary team.
== END 2018-05-16 10:20 | disposition swing bed (61) | DRG 470 ==
LOC: SDC 05:35 → SURG A 14:09
PROVIDERS: ADMIT Orthopaedic Surgery; ATTEND Orthopaedic Surgery
PROC: 0SR902A Replacement of Right Hip Joint with Metal on Polyethylene Synthetic Substitute, Uncemented, Open Approach (ICD-10-PCS; principal; 2018-05-13)
PROC: 0QS604Z Reposition Right Upper Femur with Internal Fixation Device, Open Approach (ICD-10-PCS; 2018-05-13)
DX: M16.11 Unilateral primary osteoarthritis, right hip (principal); M96.661 Fracture of femur following insertion of orthopedic implant, joint prosthesis, or bone plate, right leg; D62 Acute posthemorrhagic anemia; N39.0 Urinary tract infection, site not specified; M81.0 Age-related osteoporosis without current pathological fracture; E78.5 Hyperlipidemia, unspecified; I12.9 Hypertensive chronic kidney disease with stage 1 through stage 4 chronic kidney disease, or unspecified chronic kidney disease; E11.22 Type 2 diabetes mellitus with diabetic chronic kidney disease; N18.2 Chronic kidney disease, stage 2 (mild); E11.42 Type 2 diabetes mellitus with diabetic polyneuropathy; I25.10 Atherosclerotic heart disease of native coronary artery without angina pectoris; F41.9 Anxiety disorder, unspecified; M47.897 Other spondylosis, lumbosacral region; Z88.1 Allergy status to other antibiotic agents; Z88.0 Allergy status to penicillin; Z88.8 Allergy status to other drugs, medicaments and biological substances; Y83.1 Surgical operation with implant of artificial internal device as the cause of abnormal reaction of the patient, or of later complication, without mention of misadventure at the time of the procedure
CPT/HCPCS: 36415; 36416; 72170; 80048; 81001; 83735; 84100; 84132; 85027; 87077; 87086; 87186; 93005; 93010; A4216; C1713; C1776; G8978-GP-CM; G8979-GP-CI; G8987-GO-CK; G8988-GO-CI; J0670; J1100; J1170; J1885; J1956; J2001; J2250; J2405; J2704; J3010; J3370; J3490; J7050; Q0162

== ENCOUNTER 2020-08-01 13:57 | Inpatient (IN) | payer MEDICARE ==
[2020-08-01] MEDS ORDERED: Pantoprazole 80 MG, Admixture Fee 1 EACH in Sodium Chloride 0.9% 100 ML IVPB SCH (16:00)
[2020-08-01] MEDS ORDERED: GoLYTELY 4,000 ml Bottle PO SCH (17:00)
--- NOTE | 2020-08-01 17:34 | PDOC.HHP ---
Hospitalist HPI - History of Present Illness GI bleed History of Present Illness: Patient is a 85-year-old female who has been in generally pretty good health. The patient reported that she was feeling well until she awakened in the middle the night feeling like she needed to have a bowel movement. She subsequently had melena. She subsequently had a couple more episodes through the night. She presented to the emergency department and [facility]. There she had a CT scan of the abdomen which showed no acute findings. She had hemoglobin that was stable. Her blood pressure was around 113 systolic 40s diastolic initially. She was given a liter of fluid subsequently her blood pressures remained pretty stable and pretty normal. She denies any abdominal pain, nausea, fever. She subsequently has been transferred to this facility for further evaluation. She denies any recent use of NSAIDs. Hospitalist ROS - Review of Systems Constitutional: denies: fever, chills Respiratory: denies: cough, shortness of breath Cardiovascular: denies: chest pain Gastrointestinal: reports: melena. denies: nausea, vomiting, abdominal pain, diarrhea, constipation Genitourinary: reports: frequency. denies: dysuria All other systems reviewed; all pertinent +/- noted in HPI/Subj - Medication Medications: Amlodipine 5 mg p.o. daily Hospitalist History - Past Medical History Source: patient Cardiac: reports: HTN, Hyperlipidemia Musculoskeletal: reports: Osteoarthritis Renal/: reports: Chronic renal insuff (Stage II) Endocrine: reports: Other (Goiter, retrosternal) Other Medical History: Peripheral neuropathy the lower extremities, hyperlipidemia, chronic kidney disease stage II-III, substernal thyroid goiter - Past Surgical History Past Surgical History: reports: Cholecystectomy, Hysterectomy, Total Hip Replacement (Right), Tubal Ligation - Family History Family History: reports: no pertinent history - Social History Smoking Status: Never smoker Alcohol: reports: None Drugs: reports: none Living Situation: With Family Other Social History: Patient is . Currently living with her daughters. She is full code. Her daughter Stacy would be her surrogate medical decision maker if that became necessary. - Exam General Appearance: NAD, awake alert Neck: supple, symmetric, no JVD, no thyromegaly, no lymphadenopathy, no carotid bruit Heart: RRR, no murmur, no gallops, no rubs, normal peripheral pulses Respiratory: CTAB, no wheezes, no rales, no ronchi, normal chest expansion, no tachypnea, normal percussion Gastrointestinal: soft, non-tender, non-distended, normal bowel sounds, no palpable masses, no hepatomegaly, no splenomegaly, no bruit Extremities: no cyanosis, no clubbing, no edema Skin: normal turgor, no lesions, no rashes Neurological: cranial nerve grossly intact, normal sensation to touch, no weakness, no focal deficits, no new deficit Musculoskeletal: normal tone, normal strength, no muscle wasting Psychiatric: normal affect, normal behavior, A&O x 3 Hospitalist Results - Labs Lab results: Hemoglobin was 10.6. Hospitalist H&P A/P - Problem (1) Upper GI bleed Code(s): K92.2 - GASTROINTESTINAL HEMORRHAGE, UNSPECIFIED Status: Acute (2) HTN (hypertension) Code(s): I10 - ESSENTIAL (PRIMARY) HYPERTENSION Status: Chronic (3) CKD (chronic kidney disease), stage II Code(s): N18.2 - CHRONIC KIDNEY DISEASE, STAGE 2 (MILD) Status: Acute - Plan Plan: Patient is 85-year-old female who initially presented to the [facility] emergency department reporting melena. She had several episodes during the night and another while in the emergency room there. She has had 5 total. Initial blood pressure was borderline low. She received fluids and subsequently stabilized. Her hemoglobin appears to be generally stable. She has no significant risk factors for peptic ulcer disease at this time. Upper GI bleed: Patient's hemoglobin appears relatively stable. Appears to be at her baseline. PPI with Protonix 40 mg IV every 12. Frequent monitoring of hemoglobin. GI consult with plan for endoscopy in the morning. Hypertension: Patient's blood pressure was borderline low on initial presentation to the outside emergency department. Appears to be generally stable after some fluids. We will hold her antihypertensives for now. CKD stage II: Stage III intermittently. Appears to be at her baseline. Avoid nephrotoxic drugs. DVT prophylaxis: SCDs and avoid anticoagulation Disposition: Patient is full code. Her daughter would be her surrogate decision maker should that be necessary. Do not anticipate any post discharge needs. Patient is observation.
--- NOTE | 2020-08-01 18:41 | CON ---
DATE OF CONSULTATION: 08/01/2020 REQUESTING PHYSICIAN: Edwin Chacon DO REASON FOR CONSULTATION: GI bleeding. HISTORY OF PRESENT ILLNESS: Meme Gonzalez is an 85-year-old woman with no significant past gastrointestinal history or chronic gastrointestinal symptoms. She has never undergone EGD or colonoscopy. She is being admitted today after being transferred from the [facility] with acute GI bleeding. She reports that about 2:00 a.m., she was awakened from sleep with the need to have a bowel movement when she did, it was nothing but very dark stool and maroon clots. She has had five such episodes over the course of today since then. There is some dark maroon clots as well as some brighter blood on the toilet tissue. With all of this, she did begin to feel a bit lightheaded, but this was pretty transient. She received a liter of fluid at the outside ER, and this resolved. Hemoglobin was found to be 10.3, down from 11.8 on labs just 4 months ago. She has remained hemodynamically stable here. Notably, she does not have any other symptoms such as abdominal pain, nausea, vomiting, fever, rash, or anal discomfort. She has never had previous episodes before. She was given IV Protonix. She is being admitted for further evaluation. REVIEW OF SYSTEMS: Full review of systems including constitutional, head, eyes, ears, nose, throat, GI, , cardiovascular, respiratory, musculoskeletal, and neurologic systems is negative except as noted in the HPI. PAST MEDICAL HISTORY: Cholecystectomy, hysterectomy, appendectomy, right hip surgery, and hypertension. ALLERGIES: CLINDAMYCIN, PENICILLIN, AND BACTRIM. OUTPATIENT MEDICATIONS: 1. Amlodipine. 2. Nitrofurantoin. FAMILY HISTORY: Noncontributory. SOCIAL HISTORY: No smoking, alcohol, or drug use. She lives at home with family. PHYSICAL EXAMINATION: VITAL SIGNS: Temperature 97.8, pulse 82, blood pressure 153/51, and 96% oxygen saturation on room air. GENERAL: An 85-year-old woman, lying in bed comfortably, in no distress. SKIN: No jaundice, no rashes were palpable. EYES: No scleral icterus. Extraocular movements intact. ENT: Mucous membranes moist. No oral lesions. LYMPH: No submandibular or supraclavicular lymphadenopathy. THYROID: Nontender to palpation. HEART: Regular rate and rhythm. LUNGS: Clear to auscultation bilaterally. ABDOMEN: Bowel sounds present. Nondistended, soft, and nontender to palpation throughout. EXTREMITIES: No peripheral edema. VESSELS: Radial pulses 2+ bilaterally. NEURO: Cranial nerves II through XII intact bilaterally. No focal deficits. LABORATORY STUDIES: Hemoglobin 10.3, MCV 87.4, WBC 6.4, and platelets 213. Sodium 140, potassium 4.2, BUN 21, and creatinine 1.11. INR 1.0. Troponin negative. LFTs all normal. Normal amylase and lipase with amylase 104, lipase 44. Urinalysis shows 4 to 6 wbc's. IMAGING STUDIES: CT of the abdomen and pelvis demonstrates no acute processes. No evidence of bowel dilation. She is post cholecystectomy with reservoir effect of the common bile duct and a stable left liver hypodensity characterized on a prior CT as 1.5-cm cyst. ASSESSMENT AND PLAN: 1. Acute gastrointestinal bleeding, likely represents lower gastrointestinal source. 2. Acute blood loss anemia, mild. The patient remains hemodynamically stable here. This is painless bleeding, all acute since this morning. The appearance of the stool with maroon blood and clots seems most consistent with likely lower gastrointestinal source such as a diverticular bleed, cannot completely rule out upper gastrointestinal source. The patient has appropriately been started on Protonix. Trend H and H, and transfuse as needed. We are going to plan for diagnostic esophagogastroduodenoscopy and colonoscopy tomorrow, after bowel preparation this evening. The patient will be screened for COVID. Thank you for the consultation. Please call anytime with questions or concerns. Further recommendations following esophagogastroduodenoscopy/colonoscopy tomorrow. Job ID: [id number]
[2020-08-01 18:49] VITALS: BMI 23.2
[2020-08-01 19:05] LABS: Hemoglobin 9.6 g/dL (12.0-16.0)
[2020-08-01] MEDS: Pantoprazole 40 MG VIAL IVP SCH (20:17)
[2020-08-01 23:48] LABS: Hemoglobin 9.5 g/dL (12.0-16.0)
[2020-08-02 07:11] LABS: SARS-CoV-2 NAA Rapid Test Not Detected (NotDetected)
[2020-08-02] MEDS: Pantoprazole 40 MG VIAL IVP SCH (07:59)
[2020-08-02] MEDS ORDERED: Lidocaine 1% PF 5 ML VIAL ONE (10:07)
[2020-08-02] MEDS ORDERED: PROPOFOL 200 MG/20 ML VIAL ONE (10:07)
[2020-08-02 10:54] LABS: Anion Gap 17 mmol/L (10-20); BUN (Urea Nitrogen) 16 mg/dL (9.8-20.1); Calc. Creatinine Clearance 51 mL/min (70-130); Calcium 8.2 mg/dL (7.8-10.44); Carbon Dioxide 21 mmol/L (23-31); Chloride 112 mmol/L (98-107); Glucose 87 mg/dL (83-110); Potassium 3.5 mmol/L (3.5-5.1); Sodium 146 mmol/L (136-145)
[2020-08-02 10:59] LABS: Hemoglobin 8.2 g/dL (12.0-16.0); Mean Corpuscular HGB CONC 31.7 g/dL (32.0-36.0); Mean Corpuscular Hemoglobin 28.3 pg (27.0-31.0); Mean Corpuscular Volume 89.3 fL (78.0-98.0); Mean Platelet Volume 8.5 fL (7.4-10.4); Platelet Count 218 thou/uL (130-400); RBC Distribution Width 12.8 % (11.5-14.5); Red Blood Cell (RBC) Count 2.91 mill/uL (4.20-5.40); White Blood Cell (WBC) Count 8.7 thou/uL (4.8-10.8)
[2020-08-02 11:36] LABS: Band 2 % (5-11); Lymphocytes 25 % (21-51); MDiff Complete? YES; Monocytes 6 % (0-10); Neutrophil 65 % (42-75); Platelet Morphology Comment Appears Adequate; Polychromasia SLIGHT = 2-3 cells (100X) (0-2/hpf); Reactive Lymphocytes 1 % (0-10)
--- NOTE | 2020-08-02 14:09 | OP ---
DATE OF PROCEDURE: 08/02/2020 PROCEDURES PERFORMED: Esophagogastroduodenoscopy and colonoscopy. PREPROCEDURE DIAGNOSIS: Gastrointestinal hemorrhage. POSTPROCEDURE DIAGNOSES: 1. Normal esophagogastroduodenoscopy. 2. Colonoscopy notable for lyon-diverticulosis, likely source of bleeding with no active bleeding now. 3. Five polyps, 4 in the ascending, transverse, and descending, about 5 mm in size, one pedunculated 1 cm in size, all removed by hot snare polypectomy, sigmoid colon polyp was clipped secondary to postpolypectomy bleeding. RECOMMENDATIONS: 1. Monitor hemoglobin and hematocrit. Resume full liquid diet, advance as tolerated. 2. If further signs of bleeding, get a tagged red blood cell scan. ANESTHESIA: TIVA. DESCRIPTION OF PROCEDURE: After the patient was informed of the risks, benefits, and possible complications of endoscopy including perforation, reaction to medication, aspiration, informed consent was obtained and the patient was brought to endoscopy suite, where she was sedated in gradual fashion. Once she was comfortable, a bite block was placed in the incisural orifice. The endoscope was advanced into the esophagus, stomach, into second and third portions of the duodenum and slowly removed. There was good visualization of the mucosa. The esophagus, stomach, and duodenum were all normal. There were no stigmata of bleeding, AVMs, or ulcers. There were no varices or portal hypertensive changes. The scope was removed. The patient was returned to the room. A rectal examination was performed, which was normal. There was no blood in the colon. The endoscope was advanced to the cecum. The scope was slowly removed. There was lyon-diverticulosis coli with no active bleeding seen or clots or old blood in the colon. There were 5 scattered polyps from the ascending colon to the sigmoid. The largest in the sigmoid, was pedunculated, a centimeter in size, they were all removed by hot snare polypectomy. The sigmoid polyp had bleeding and the stalk was clipped. The bleeding was related to the polypectomy and not the cause of her admission. Retroflexed views were normal. The scope was removed. The patient tolerated procedure well. There were no complications. Job ID: [id number]
--- NOTE | 2020-08-02 17:01 | PDOC.HOSPP ---
- Subjective Encounter Date: 08/02/20 Subjective: Seen prior to the procedure. She had no complaints. - Objective Vital Signs & Weight: Vital Signs (12 hours) Temp Pulse Resp BP Pulse Ox 08/02/20 16:09 98.5 F 96 16 116/56 L 100 08/02/20 13:55 98.2 F 77 20 137/66 100 08/02/20 10:44 97.1 F L 85 20 132/66 97 08/02/20 07:33 98.5 F 78 16 119/55 L 96 08/02/20 05:28 98.5 F 86 16 111/57 L 98 Weight Weight 152 lb 9.6 oz I&O: 08/01/20 08/02/20 08/03/20 06:59 06:59 06:59 Intake Total 4000 Balance 4000 Result Diagrams: 08/02/20 10:05 08/02/20 10:05 - Exam General Appearance: awake alert ENT: normocephalic atraumatic Neck: supple Heart: RRR Respiratory: normal chest expansion, no tachypnea Gastrointestinal: soft Extremities: no cyanosis Neurological: no focal deficits Hosp A/P (1) Diverticular hemorrhage Code(s): K57.31 - DVRTCLOS OF LG INT W/O PERFORATION OR ABSCESS W BLEEDING Status: Acute (2) CAD (coronary artery disease) Code(s): I25.10 - ATHSCL HEART DISEASE OF [place] CORONARY ARTERY W/O ANG PCTRS Status: Chronic (3) DM2 (diabetes mellitus, type 2) Status: Chronic Qualifiers: Diabetes mellitus complication status: with hyperglycemia (4) HTN (hypertension) Code(s): I10 - ESSENTIAL (PRIMARY) HYPERTENSION Status: Chronic - Plan Status post EGD and colonoscopy. EGD was normal and colonoscopy revealed evidence of diverticulosis was thought to be the source of bleeding and also showed multiple polyps that were removed. Monitor the patient for the next 24 hours and if she remains stable we can plan to discharge her home.
[2020-08-02] MEDS ORDERED: FLU VACC QS2020-21(65YR UP)/PF 240 MCG/0.7 ML SYRINGE IM ONE (21:00)
[2020-08-03 05:37] LABS: #Eosinphils 0.2 thou/uL (0.0-0.7); #Monocytes 0.8 thou/uL (0.11-0.59); #Neutrophils 6.2 thou/uL (1.40-6.50); %Eosinophils 1.6 % (0.0-10.0); %Lymphocytes 29.9 % (21.0-51.0); %Monocytes 7.4 % (0.0-10.0); %Neutrophils 61.2 % (42.0-75.0); Hemoglobin 7.4 g/dL (12.0-16.0); Mean Corpuscular HGB CONC 31.5 g/dL (32.0-36.0); Mean Corpuscular Hemoglobin 27.4 pg (27.0-31.0); Mean Platelet Volume 8.3 fL (7.4-10.4); Platelet Count 202 thou/uL (130-400); RBC Distribution Width 12.5 % (11.5-14.5); Red Blood Cell (RBC) Count 2.71 mill/uL (4.20-5.40); White Blood Cell (WBC) Count 10.1 thou/uL (4.8-10.8)
[2020-08-03 06:35] LABS: Anion Gap 13 mmol/L (10-20); BUN (Urea Nitrogen) 16 mg/dL (9.8-20.1); Calc. Creatinine Clearance 54 mL/min (70-130); Carbon Dioxide 22 mmol/L (23-31); Chloride 110 mmol/L (98-107); Glucose 86 mg/dL (83-110); Potassium 3.1 mmol/L (3.5-5.1); Sodium 142 mmol/L (136-145)
[2020-08-03] MEDS: Pantoprazole 40 MG VIAL IVP SCH (08:26)
--- NOTE | 2020-08-03 15:28 | PDOC.HOSPP ---
- Subjective Encounter Date: 08/03/20 Subjective: The patient reported an episode of bleeding last night. - Objective Vital Signs & Weight: Vital Signs (12 hours) Temp Pulse Pulse Resp BP BP BP 08/03/20 14:45 98.7 F 84 20 127/57 L 08/03/20 11:43 98.5 F 68 20 108/58 L 08/03/20 11:37 98.4 F 81 20 112/61 08/03/20 08:25 08/03/20 07:38 98.9 F 71 16 117/66 08/03/20 05:00 98.3 F 73 16 116/55 L Pulse Ox 08/03/20 14:45 97 08/03/20 11:43 96 08/03/20 11:37 98 08/03/20 08:25 97 08/03/20 07:38 97 08/03/20 05:00 98 Weight Weight 152 lb 9.6 oz I&O: 08/02/20 08/03/20 08/04/20 06:59 06:59 06:59 Intake Total 4000 1120 350 Balance 4000 1120 350 Result Diagrams: 08/03/20 04:59 08/03/20 04:59 Additional Labs: Accuchecks 08/02/20 21:19 POC Glucose 121 H Hospitalist ROS - Medication Medications: Active Medications Generic Name Dose Route Start Last Admin Trade Name Freq PRN Reason Stop Dose Admin Pantoprazole Sodium 40 mg 08/03/20 09:00 08/03/20 08:26 Pantoprazole 40 Mg Vial IVP 40 mg DAILY SELIN Administration - Exam General Appearance: awake alert Neck: supple, no JVD Heart: RRR Respiratory: normal chest expansion, no tachypnea Gastrointestinal: soft Extremities: no cyanosis Neurological: cranial nerve grossly intact Hosp A/P (1) Diverticular hemorrhage Code(s): K57.31 - DVRTCLOS OF LG INT W/O PERFORATION OR ABSCESS W BLEEDING Status: Acute (2) CAD (coronary artery disease) Code(s): I25.10 - ATHSCL HEART DISEASE OF [place] CORONARY ARTERY W/O ANG PCTRS Status: Chronic (3) DM2 (diabetes mellitus, type 2) Status: Chronic Qualifiers: Diabetes mellitus complication status: with hyperglycemia (4) HTN (hypertension) Code(s): I10 - ESSENTIAL (PRIMARY) HYPERTENSION Status: Chronic - Plan Status post EGD and colonoscopy. EGD was normal and colonoscopy revealed evidence of diverticulosis was thought to be the source of bleeding and also showed multiple polyps that were removed. The patient hemoglobin level trended down since yesterday an episode of bleeding was reported last night. We will continue to monitor the patient for another 24 hours. Repeat H&H tomorrow.
--- NOTE | 2020-08-03 21:19 | PRG ---
DATE OF SERVICE: 08/03/2020 SUBJECTIVE: Ms. Gonzalez is tolerating the full liquids well and she has had no bowel movement today. No further overt bleeding. She did have one bloody bowel movement last night. OBJECTIVE: VITAL SIGNS: Temperature is 98.5, pulse 82, and blood pressure 163/71. GENERAL: She is in no acute distress. Alert and awake. LUNGS: Clear to auscultation bilaterally. HEART: Regular rate and rhythm without murmur. ABDOMEN: Soft, nontender, and nondistended. Bowel sounds are present. EXTREMITIES: No lower extremity edema. LABORATORY DATA: Her hemoglobin was 7.4 this morning. IMPRESSION: Gastrointestinal bleed, most likely secondary to diverticular hemorrhage. She did have some polyps removed from her colon as well. Her upper endoscopy was negative. At this point, her bleeding appears to have resolved. RECOMMENDATIONS: We will advance her diet in the morning and if her hemoglobin remains stable and she is tolerating her diet well, anticipate discharge home tomorrow. Dr. Whitaker will cover the service starting tomorrow. Job ID: [id number]
[2020-08-04 06:06] LABS: #Basophils 0.1 thou/uL (0.0-0.2); #Eosinphils 0.3 thou/uL (0.0-0.7); #Lymphocytes 3.9 thou/uL (1.20-3.40); #Monocytes 0.8 thou/uL (0.11-0.59); #Neutrophils 4.3 thou/uL (1.40-6.50); %Basophils 0.7 % (0.0-1.0); %Eosinophils 3.1 % (0.0-10.0); %Lymphocytes 41.7 % (21.0-51.0); %Monocytes 8.2 % (0.0-10.0); %Neutrophils 46.3 % (42.0-75.0); Hemoglobin 8.5 g/dL (12.0-16.0); Mean Corpuscular HGB CONC 33.1 g/dL (32.0-36.0); Mean Corpuscular Volume 87.8 fL (78.0-98.0); Mean Platelet Volume 8.4 fL (7.4-10.4); Platelet Count 200 thou/uL (130-400); RBC Distribution Width 12.7 % (11.5-14.5); Red Blood Cell (RBC) Count 2.94 mill/uL (4.20-5.40); White Blood Cell (WBC) Count 9.3 thou/uL (4.8-10.8)
[2020-08-04 06:21] LABS: Anion Gap 10 mmol/L (10-20); BUN (Urea Nitrogen) 10 mg/dL (9.8-20.1); Calc. Creatinine Clearance 53 mL/min (70-130); Calcium 8.2 mg/dL (7.8-10.44); Carbon Dioxide 25 mmol/L (23-31); Chloride 110 mmol/L (98-107); Glucose 87 mg/dL (83-110); Potassium 3.2 mmol/L (3.5-5.1); Sodium 142 mmol/L (136-145)
[2020-08-04 07:17] VITALS: TEMP 98.9
[2020-08-04] MEDS: Pantoprazole 40 MG VIAL IVP SCH (09:13)
--- NOTE | 2020-08-04 09:58 | PRG ---
DATE OF SERVICE: 08/04/2020 SUBJECTIVE: Ms. Gonzalez is feeling well. She never had any abdominal pain. Her last bowel movement was clear. She has had no bowel movement yet today. Her hemoglobin is stable this morning after 1 unit RBC transfusion yesterday. OBJECTIVE: VITAL SIGNS: Temperature 98.9, pulse 77, blood pressure 151/67, 97% oxygen saturation on room air. GENERAL: No acute distress, sitting up in the edge of the bed comfortably eating breakfast. HEART: Regular rate and rhythm. LUNGS: Clear to auscultation bilaterally. ABDOMEN: Soft, nontender to palpation. EXTREMITIES: No peripheral edema. LABORATORY STUDIES: Hemoglobin 8.5, WBC 9.3, platelets 200. Sodium 142, potassium 3.2, BUN 10, creatinine 0.86. ASSESSMENT AND PLAN: 1. Diverticular hemorrhage, now resolved. 2. Acute blood loss anemia, stable today. She received 1 unit RBC yesterday. She is tolerating her diet. Discussed with the patient that in all likelihood, this represented a diverticular bleeding episode, which does have some chance for recurrence in the future. If she has a similar presentation in the future, she needs to come back to the hospital. 3. Colon polyps. She had multiple colon polyps removed on her colonoscopy. 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 Given her age 85, no repeat surveillance colonoscopy will be recommended. From a GI perspective, the patient could be discharged from the hospital today. GI will sign off. Please call back anytime with questions or concerns. Job ID: [id number]
--- NOTE | 2020-08-04 14:45 | PDOC.DS.DS ---
Provider - Provider Date of Admission: 08/02/20 14:36 Date of Discharge: 08/04/20 Admitting Provider: Maurice White DO Primary Care Physician: Reji Gonzalez MD Course - Hospital Course Hospital Course: The patient is an 85-year-old female with past medical history of hypertension and hyperlipidemia who presented to the hospital with complaints of bloody bowel movements. Maroon-colored stool was reported in the hospital. The patient was hemodynamically stable. She was evaluated by GI and underwent colonoscopy which showed diverticulosis which is likely the source of bleeding. Multiple polyps were also noted and were resected. The patient was monitored for 24 hours post polypectomy where her hemoglobin dropped and required transfusion of a unit of packed RBCs.. Subsequently, she remained stable. Resuscitation Status: 08/01/20 17:29 Resuscitation Status Routine Resuscitation Status: FULL: Full Resuscitation - Labs Lab Results: 08/04/20 05:30 08/04/20 05:30 Abnormal Lab Results - Last 48 hrs 08/03/20 04:59: Potassium 3.1 L, Chloride 110 H, Carbon Dioxide 22 L 08/03/20 04:59: RBC 2.71 L, Hgb 7.4 L, Hct 23.6 L, MCHC 31.5 L, Monocytes # 0.8 H 08/03/20 10:08: Crossmatch See Detail 08/04/20 05:30: Potassium 3.2 L, Chloride 110 H 08/04/20 05:30: RBC 2.94 L, Hgb 8.5 L, Hct 25.8 L, Lymphocytes # 3.9 H, Monocytes # 0.8 H - Physical Exam Vitals: Vital Signs (12 hours) Temp Pulse Resp BP Pulse Ox 08/04/20 09:10 97 08/04/20 07:15 98.9 F 77 16 151/67 H 97 Weight Weight 152 lb 9.6 oz Physical Exam: The patient was seen and examined on the day of discharge. Problem - Problem (1) Diverticular hemorrhage Code(s): K57.31 - DVRTCLOS OF LG INT W/O PERFORATION OR ABSCESS W BLEEDING Status: Acute (2) CAD (coronary artery disease) Code(s): I25.10 - ATHSCL HEART DISEASE OF [place] CORONARY ARTERY W/O ANG PCTRS Status: Chronic (3) DM2 (diabetes mellitus, type 2) Status: Chronic Qualifiers: Diabetes mellitus complication status: with hyperglycemia (4) HTN (hypertension) Code(s): I10 - ESSENTIAL (PRIMARY) HYPERTENSION Status: Chronic Plan - Discharge Medications Home Medications: Medication Instructions Recorded Confirmed Type Amlodipine Besylate [amLODIPine 5 mg PO QAM 10/29/17 08/01/20 History Besylate] Multivit-Min/Iron/Folic/Lutein 1 tab PO DAILY 10/29/17 08/01/20 History [Centrum Silver Women] Multivitamin [Multiple Vitamins] 1 each PO DAILY 05/16/18 08/01/20 History Acetaminophen [Tylenol Regular 650 mg PO Q4H PRN 08/01/20 08/01/20 History Strength] Aspirin [Ecotrin Low Strength] 81 mg PO DAILY #0 tab 08/04/20 08/01/20 Rx Allergies: clindamycin Allergy (Verified 08/01/20 20:17) Penicillins Allergy (Verified 08/01/20 20:17) sulfamethoxazole [From Septra] Allergy (Verified 08/01/20 20:17) trimethoprim [From Aprra] Allergy (Verified 08/01/20 20:17) - Follow up Plan Referrals: Reji Gonzalez MD [Primary Care Provider] - Disposition: HOME Quality - Care Measures CORE MEASURES:: N/A
[2020-08-04 15:51] VITALS: BP 127/72
== END 2020-08-04 16:55 | disposition home or self-care (01) | DRG 378 ==
LOC: ERS 13:57 → T4-A 15:31 → OBSVTOIN 08-02 14:36
PROVIDERS: ADMIT Family Medicine; ATTEND Internal Medicine
PROC: 0DJ08ZZ Inspection of Upper Intestinal Tract, Via Natural or Artificial Opening Endoscopic (ICD-10-PCS; principal; 2020-08-02)
PROC: 0DBK8ZZ Excision of Ascending Colon, Via Natural or Artificial Opening Endoscopic (ICD-10-PCS; 2020-08-02)
PROC: 0DBL8ZZ Excision of Transverse Colon, Via Natural or Artificial Opening Endoscopic (ICD-10-PCS; 2020-08-02)
PROC: 0DBM8ZZ Excision of Descending Colon, Via Natural or Artificial Opening Endoscopic (ICD-10-PCS; 2020-08-02)
PROC: 0W3P8ZZ Control Bleeding in Gastrointestinal Tract, Via Natural or Artificial Opening Endoscopic (ICD-10-PCS; 2020-08-02)
PROC: 30233N1 Transfusion of Nonautologous Red Blood Cells into Peripheral Vein, Percutaneous Approach (ICD-10-PCS; 2020-08-03)
DX: K57.31 Diverticulosis of large intestine without perforation or abscess with bleeding (principal); D62 Acute posthemorrhagic anemia; I12.9 Hypertensive chronic kidney disease with stage 1 through stage 4 chronic kidney disease, or unspecified chronic kidney disease; Z20.828 Contact with and (suspected) exposure to other viral communicable diseases; E78.5 Hyperlipidemia, unspecified; M19.90 Unspecified osteoarthritis, unspecified site; K63.5 Polyp of colon; N18.2 Chronic kidney disease, stage 2 (mild); E11.22 Type 2 diabetes mellitus with diabetic chronic kidney disease; E11.65 Type 2 diabetes mellitus with hyperglycemia; I25.10 Atherosclerotic heart disease of native coronary artery without angina pectoris; G62.9 Polyneuropathy, unspecified; Z96.641 Presence of right artificial hip joint; K91.840 Postprocedural hemorrhage of a digestive system organ or structure following a digestive system procedure; Z90.49 Acquired absence of other specified parts of digestive tract; Z90.710 Acquired absence of both cervix and uterus; Z98.51 Tubal ligation status; Z88.0 Allergy status to penicillin; Z88.1 Allergy status to other antibiotic agents; Y83.8 Other surgical procedures as the cause of abnormal reaction of the patient, or of later complication, without mention of misadventure at the time of the procedure
CPT/HCPCS: 36415; 36416; 36430; 80048; 85025; 86850; 86900; 86901; 87635; 88305; 90471; 90662; 96365; 96376; C9113; G0008; G0378; J2704; J3490; P9016; U0002; U0003

== ENCOUNTER 2020-08-10 14:42 | Inpatient (IN) | payer MEDICARE ==
[2020-08-10 15:39] LABS: #Basophils 0.1 thou/uL (0.0-0.2); #Eosinphils 0.2 thou/uL (0.0-0.7); #Lymphocytes 3.4 thou/uL (1.20-3.40); #Monocytes 0.8 thou/uL (0.11-0.59); %Basophils 0.5 % (0.0-1.0); %Eosinophils 2.6 % (0.0-10.0); %Lymphocytes 36.1 % (21.0-51.0); %Monocytes 8.2 % (0.0-10.0); %Neutrophils 52.6 % (42.0-75.0); Hemoglobin 6.9 g/dL (12.0-16.0); Mean Corpuscular HGB CONC 32.9 g/dL (32.0-36.0); Mean Corpuscular Hemoglobin 29.1 pg (27.0-31.0); Mean Corpuscular Volume 88.4 fL (78.0-98.0); Mean Platelet Volume 7.3 fL (7.4-10.4); Platelet Count 281 thou/uL (130-400); RBC Distribution Width 14.1 % (11.5-14.5); Red Blood Cell (RBC) Count 2.37 mill/uL (4.20-5.40); White Blood Cell (WBC) Count 9.5 thou/uL (4.8-10.8)
[2020-08-10 15:51] LABS: ALT (SGPT) 8 U/L (8-55); AST (SGOT) 12 U/L (5-34); Albumin 3.5 g/dL (3.4-4.8); Alkaline Phosphatase 48 U/L (40-110); Anion Gap 12 mmol/L (10-20); BUN (Urea Nitrogen) 13 mg/dL (9.8-20.1); Bilirubin, Total 0.2 mg/dL (0.2-1.2); Calc. Creatinine Clearance 0 mL/min (70-130); Calcium 8.3 mg/dL (7.8-10.44); Carbon Dioxide 22 mmol/L (23-31); Chloride 111 mmol/L (98-107); Globulin 2.8 g/dL (2.4-3.5); Glucose 91 mg/dL (83-110); Potassium 3.4 mmol/L (3.5-5.1); Protein, Total 6.3 g/dL (6.0-8.3); Sodium 142 mmol/L (136-145)
[2020-08-10 18:42] LABS: INR-International Normal Ratio 1.1; PTT 28.6 sec (22.9-36.1); Prothrombin Time 14.4 sec (12.0-14.7)
[2020-08-10 18:43] LABS: CK (CPK) 65 U/L (29-168); Lipase 41 U/L (8-78)
[2020-08-10] MEDS ORDERED: Potassium Chloride 20 MEQ TAB PO SCH (19:45)
--- NOTE | 2020-08-10 19:47 | PDOC.HHP ---
Hospitalist HPI - History of Present Illness Lower GI bleed History of Present Illness: This an 85-year-old female patient who was recently admitted for lower GI bleed secondary to diverticular disease and discharged on 08/04/2020 she is back again with recurrent ongoing bleeding.Is a bounce back. She had upper and lower GI endoscopy on 08/12/2020 Patient was in the room with her daughter who helped to give the history. Daughter notes she has been having small amounts of bleeding since left however she had a big episode this afternoon leading him to return to the ED for further evaluation. She notes one time having dizziness but not today. She denies any fall chest pain palpitations or shortness of breath. On arrival her hemoglobin was noted to be 6.9 and a unit of packed red blood cells has been ordered. She also has hypokalemia of 3.4 otherwise BMP is essentially within normal limits. Hospitalist ROS - Review of Systems Constitutional: denies: fever, chills, sweats, weakness Respiratory: denies: cough, dry, shortness of breath, hemoptysis Cardiovascular: denies: chest pain, palpitations, orthopnea Gastrointestinal: reports: hematochezia. denies: nausea, vomiting, abdominal pain Genitourinary: denies: dysuria, frequency, incontinence Musculoskeletal: denies: neck pain, shoulder pain, arm pain Neurological: denies: weakness, numbness, incoordination Hospitalist History - Past Medical History Musculoskeletal: reports: Osteoarthritis Renal/: reports: Chronic renal insuff (Stage II) Endocrine: reports: Other (Goiter, retrosternal) Other Medical History: Hypertension - Past Surgical History Past Surgical History: reports: Cholecystectomy, Hysterectomy, Total Hip Replacement (Right), Tubal Ligation Other Surgical History: Hysterectomy, right hip replacement - Family History Family History: reports: no pertinent history - Social History Smoking Status: Never smoker Alcohol: reports: None Drugs: reports: none Living Situation: With Family Activity level: uses cane/walker - Exam General Appearance: awake alert General - other findings: Lively. No acute distress ENT: normocephalic atraumatic, no oropharyngeal lesions Heart: RRR, no murmur, no gallops, no rubs Respiratory: CTAB, no wheezes, no rales, no ronchi Gastrointestinal: soft, non-tender, non-distended, normal bowel sounds Extremities: no cyanosis, no clubbing, no edema Neurological: cranial nerve grossly intact, no weakness, no focal deficits Musculoskeletal: normal tone, normal strength Psychiatric: normal affect, normal behavior, A&O x 3 Hospitalist Results - Labs Result Diagrams: 08/11/20 21:58 08/11/20 21:58 Lab results: WBC 9.5 thou/uL (4.8-10.8) 08/10/20 15:15 Hgb 6.9 g/dL (12.0-16.0) L 08/10/20 15:15 Hct 20.9 % (36.0-47.0) L 08/10/20 15:15 MCV 88.4 fL (78.0-98.0) 08/10/20 15:15 Plt Count 281 thou/uL (130-400) 08/10/20 15:15 Neutrophils % 52.6 % (42.0-75.0) 08/10/20 15:15 Sodium 142 mmol/L (136-145) 08/10/20 15:15 Potassium 3.4 mmol/L (3.5-5.1) L 08/10/20 15:15 Chloride 111 mmol/L (98-107) H 08/10/20 15:15 Carbon Dioxide 22 mmol/L (23-31) L 08/10/20 15:15 BUN 13 mg/dL (9.8-20.1) 08/10/20 15:15 Creatinine 0.88 mg/dL (0.6-1.1) 08/10/20 15:15 Glucose 91 mg/dL (83-110) 08/10/20 15:15 Lactic Acid 1.0 mmol/L (0.5-2.2) 08/10/20 18:13 Calcium 8.3 mg/dL (7.8-10.44) 08/10/20 15:15 Total Bilirubin 0.2 mg/dL (0.2-1.2) 08/10/20 15:15 AST 12 U/L (5-34) 08/10/20 15:15 ALT 8 U/L (8-55) 08/10/20 15:15 Alkaline Phosphatase 48 U/L (40-110) 08/10/20 15:15 Creatine Kinase 65 U/L (29-168) 08/10/20 18:13 Troponin I Less than 0.010 ng/mL (< 0.028) 08/10/20 18:13 Serum Total Protein 6.3 g/dL (6.0-8.3) 08/10/20 15:15 Albumin 3.5 g/dL (3.4-4.8) 08/10/20 15:15 Lipase 41 U/L (8-78) 08/10/20 18:13 Hospitalist H&P A/P - Plan Plan: This is a 85-year-old female patient history of hypertension and recurrent GI bleeds from diverticular disease presenting with another episode of hematochezia. Anemia secondary to lower GI bleed Likely diverticular bleed We will transfuse Monitor H&H GI consult in a.m. Diabetes mellitus Correctional insulin Monitor glucose Hypertension Hold blood pressure medication for now. CODE STATUS full code VT prophylaxis SCD
[2020-08-10 20:51] LABS: Bacteria/HPF 4+ HPF (None Seen); Bilirubin Negative (Negative); Blood, Urine 2+ (Negative); Clarity Clear (Clear); Glucose, Urine (Dipstick) Normal (Negative); Ketone, Urine Negative (Negative); Leukocyte 500 Leu/uL (Negative); Nitrite Negative (Negative); Protein, Urine (Dipstick) Negative (Neg-Trace); RBC/HPF 0-3 HPF (0-3); Specific Gravity, Urine 1.018 (1.002-1.036); Squamous Epithelial 0-3 HPF (0-3); Urobilinogen Normal mg/dL (Less than 2); WBC/HPF 21-50 HPF (0-3); pH, Urine 5.5 (5.0-9.0)
[2020-08-10 21:25] VITALS: BMI 26.9
--- NOTE | 2020-08-11 03:55 | PDOC.FMACP ---
Advance Care Planning - Note Summary: Advanced Care Planning was discussed. The diagnosis, prognosis and goals of care were discussed. Patient is full code. Surrogate decision maker is her daughter.
[2020-08-11] MEDS ORDERED: Electrolyte Replacement Protocol 1 EACH FS SCH (04:00)
[2020-08-11 06:04] LABS: SARS-CoV-2 MS2 Positive; SARS-CoV-2 N Gene Negative; SARS-CoV-2 S Gene Negative; SARS-CoV-2 by NAA Not Detected (NotDetected); SARS-CoV-2 orf1ab Negative
[2020-08-11 06:39] LABS: #Basophils 0.1 thou/uL (0.0-0.2); #Eosinphils 0.3 thou/uL (0.0-0.7); #Lymphocytes 3.3 thou/uL (1.20-3.40); #Monocytes 0.8 thou/uL (0.11-0.59); #Neutrophils 4.4 thou/uL (1.40-6.50); %Basophils 0.8 % (0.0-1.0); %Eosinophils 3.6 % (0.0-10.0); %Lymphocytes 37.5 % (21.0-51.0); %Monocytes 8.6 % (0.0-10.0); %Neutrophils 49.6 % (42.0-75.0); Hemoglobin 7.5 g/dL (12.0-16.0); Mean Corpuscular HGB CONC 32.8 g/dL (32.0-36.0); Mean Corpuscular Hemoglobin 29.2 pg (27.0-31.0); Mean Platelet Volume 7.2 fL (7.4-10.4); Platelet Count 257 thou/uL (130-400); RBC Distribution Width 13.4 % (11.5-14.5); Red Blood Cell (RBC) Count 2.57 mill/uL (4.20-5.40); White Blood Cell (WBC) Count 8.9 thou/uL (4.8-10.8)
[2020-08-11 07:15] LABS: Anion Gap 13 mmol/L (10-20); BUN (Urea Nitrogen) 11 mg/dL (9.8-20.1); Calc. Creatinine Clearance 66 mL/min (70-130); Carbon Dioxide 21 mmol/L (23-31); Chloride 113 mmol/L (98-107); Glucose 89 mg/dL (83-110); Magnesium 1.9 mg/dL (1.6-2.6); Potassium 3.4 mmol/L (3.5-5.1); Sodium 144 mmol/L (136-145)
[2020-08-11] MEDS ORDERED: Potassium Chloride 40 MEQ in Sodium Chloride 0.9% 250 ML 250 ML IVPB SCH (08:00)
[2020-08-11] MEDS ORDERED: Magnesium 2 GM/50 ML 2 GM in Premix Bag 1 BAG IVPB SCH (08:00)
[2020-08-11] MEDS ORDERED: PROPOFOL 200 MG/20 ML VIAL ONE (10:15)
[2020-08-11] MEDS ORDERED: PHENYLEPHRINE-NS 100 MCG/ML 10 ML SYRINGE ONE (10:15)
[2020-08-11] MEDS ORDERED: Lidocaine 1% PF 5 ML VIAL ONE (10:15)
[2020-08-11] MEDS ORDERED: Heparin 1,000 UNITS/ML VIAL ONE (11:11)
--- NOTE | 2020-08-11 12:50 | NM ---
EXAM: NM Abdominal Bleeding Pyp Scan DATE: 08/11/2020 10:37 AM INDICATION: GI bleed COMPARISON: CT abdomen pelvis dated August 01, 2020 FINDIN mCi of technetium 99m tagged RBC IV There is a focus of increased tracer accumulation within the lower left quadrant of the abdomen that increases in time and migrate on sequential images consistent with a focus of active arterial bleeding in the region of the descending colon. IMPRESSION:Focus of active GI bleeding and the descending colon.
[2020-08-11] MEDS ORDERED: Acetaminophen 325 MG TAB PO PRN (14:52)
--- NOTE | 2020-08-11 17:14 | PDOC.HOSPP ---
- Subjective Encounter Date: 08/11/20 Encounter Time: 16:00 Subjective: Patient up in bed had 1 bloody diarrhea. - Objective Vital Signs & Weight: Vital Signs (12 hours) Temp Pulse Resp BP BP Pulse Ox 08/11/20 13:05 97.4 F L 68 14 148/71 H 98 08/11/20 07:15 98.8 F 80 19 142/67 H 98 08/11/20 05:20 98.2 F 75 18 122/60 95 Weight Weight 177 lb Result Diagrams: 08/11/20 16:28 08/11/20 05:59 Hospitalist ROS - Review of Systems Respiratory: denies: cough, dry, shortness of breath, hemoptysis, SOB with excertion, pleuritic pain, sputum, wheezing, other Cardiovascular: denies: chest pain, palpitations, orthopnea, paroxysmal noc. dyspnea, edema, light headedness, other Gastrointestinal: denies: nausea, vomiting, abdominal pain, diarrhea, constipation, melena, hematochezia, other - Exam Gastrointestinal: negative: soft, non-tender, non-distended, normal bowel sounds, no palpable masses, no hepatomegaly, no splenomegaly, no bruit, no guarding, no rigidity, tender to palpation, distended, diminished bowl sounds, voluntary guarding Extremities: negative: no cyanosis, no clubbing, no edema, 1+ LE edema, 2+ LE edema, clubbing Hosp A/P (1) GI bleed Code(s): K92.2 - GASTROINTESTINAL HEMORRHAGE, UNSPECIFIED Status: Acute (2) Anemia Code(s): D64.9 - ANEMIA, UNSPECIFIED Status: Acute (3) CAD (coronary artery disease) Code(s): I25.10 - ATHSCL HEART DISEASE OF [place] CORONARY ARTERY W/O ANG PCTRS Status: Chronic (4) DM2 (diabetes mellitus, type 2) Status: Chronic Qualifiers: Diabetes mellitus complication status: with hyperglycemia (5) HTN (hypertension) Code(s): I10 - ESSENTIAL (PRIMARY) HYPERTENSION Status: Chronic - Plan Patient received 1 unit of PRBC. She has active bleed noted in WBC scan in the descending colon. GI notified. Patient to go for colonoscopy now. Will check H&H every 6 hours.
--- NOTE | 2020-08-11 18:31 | CON ---
DATE OF CONSULTATION: HISTORY OF PRESENT ILLNESS: Ms. Gonzalez is an 85-year-old, I have been asked to see for GI bleeding. She was previously in this hospital at 08/02 to 08/04 with lower GI bleeding. She had an upper and lower endoscopy on 08/02, at which time the EGD was normal with no bleeding sites and the colon showed pandiverticulosis with no active bleeding or old blood. There were 5 small polyps removed which were all benign and large 1 cm in size. The largest polyp was clipped secondary to post polypectomy bleeding. It was felt that she had a diverticular bleed. She went home with a hemoglobin of 8.5, was instructed to avoid all NSAIDs. She returned yesterday afternoon apparently with painless rectal bleeding. Apparently, she is having small amounts of bleeding since she left the hospital, had a big episode at the afternoon of admission and decided to go to the emergency room. She has dizziness once, but not on admission. She has had no chest pain or shortness of breath, dyspnea. Apparently, she had a hemoglobin of 6.9 on admission and 7.3 on the . At Dr. Gonzalez's office, she got a unit of blood on the at her last admission and she received a unit of blood yesterday there. Hemoglobin came to 7.5 this morning. When I called this morning, she had no bowel movement since this admission. HIDA scan was done and apparently showed bleeding in the left descending colon. I was informed when I came to see the patient this afternoon and I was not told this previously. Talked with the nurse. She has had 1 bowel movement today with some blood, but no others. The patient denies any pain, fever, nausea, vomiting. She states she has not been taking any NSAIDs since discharge. PAST MEDICAL HISTORY: Osteoarthritis, chronic insufficiency, goiter, hypertension. PAST SURGICAL HISTORY: Cholecystectomy, hysterectomy, hip replacement, tubal ligation, recent endoscopy as discussed above. FAMILY HISTORY: Negative for cancer or liver disease. SOCIAL HISTORY: No smoking, alcohol, drugs, tobacco use. Lives with family. REVIEW OF SYSTEMS: Negative for shortness of breath and dyspnea. MEDICATIONS: Medications at home: 1. Multivitamin. 2. Aspirin. 3. Amlodipine. 4. Tylenol. Medications here: 1. Tylenol. 2. Multivitamin. 3. Electrolyte replacement protocol. 4. She is on no IV fluids. PHYSICAL EXAMINATION: VITAL SIGNS: Temperature is 97, pulse 68, blood pressure 140/71. GENERAL: She is resting in bed. She is not in distress. LUNGS: Clear. HEART: Regular rate and rhythm without clicks or murmurs. ABDOMEN: Soft and nontender. LABORATORY DATA: Tagged red blood cell scan reviewed. Labs reviewed. BUN and creatinine 11 and 0.8. ASSESSMENT: Recurrent gastrointestinal bleed, likely diverticular. It has been about a week since her colonoscopy. She could have some bleeding from her polypectomy sites. The descending colon has a possible bleeding site. She is hemodynamically stable. Presently, we will take her for unprepped colonoscopy. Risks, benefits, and possible complications were discussed. The patient will proceed this afternoon. Job ID: [id number]
[2020-08-11] MEDS: Sodium Chloride 0.9% 1,000 ML IV SCH (20:10)
[2020-08-11 22:09] LABS: Hemoglobin 7.3 g/dL (12.0-16.0)
[2020-08-11 22:21] LABS: Potassium 3.7 mmol/L (3.5-5.1)
[2020-08-12] MEDS: Sodium Chloride 0.9% 1,000 ML IV SCH ×2 (05:43→22:00)
[2020-08-12] MEDS: Multivitamin W/ Minerals 1 TAB PO SCH (08:39)
[2020-08-12] MEDS ORDERED: Magnesium 2 GM/50 ML 2 GM in Premix Bag 1 BAG IVPB SCH (09:30)
--- NOTE | 2020-08-12 13:37 | PRG ---
DATE OF SERVICE: 08/12/2020 SUBJECTIVE: Ms. Gonzalez has had no further bleeding. The patient's family is in the room. She is without complaints. She is on clear liquids. Nurse notes she has been tolerating that well. OBJECTIVE: VITAL SIGNS: T-max 99.0, temperature current 98.7, pulse 80, blood pressure 132/70. ABDOMEN: Soft, nontender. There is no rebound. There is no guarding. LABORATORY DATA: Hemoglobin was 8 yesterday, 7.3 at 2100 last night, and has not been rechecked. ASSESSMENT: Lower gastrointestinal bleeding, diverticular versus postpolypectomy. Discussed this with the family and options that she would have recurrent bleeding, including repeat endoscopy or subtotal colectomy. RECOMMENDATIONS: 1. We would check an H and H tomorrow, more acutely if hemorrhaging. We would continue to avoid all NSAIDs, blood thinners at this time. 2. Advance diet to full liquids and then low residue as tolerated. Job ID: [id number]
--- NOTE | 2020-08-12 14:40 | PDOC.HOSPP ---
- Subjective Encounter Date: 08/12/20 Encounter Time: 10:30 Subjective: Patient up in bed no complaints. No bright blood per rectum. - Objective Vital Signs & Weight: Vital Signs (12 hours) Temp Pulse Resp BP Pulse Ox 08/12/20 07:42 98.7 F 80 16 132/70 98 Weight Weight 177 lb I&O: 08/11/20 08/12/20 08/13/20 06:59 06:59 06:59 Intake Total 830 760 Balance 830 760 Result Diagrams: 08/11/20 21:58 08/11/20 21:58 Hospitalist ROS - Review of Systems Cardiovascular: denies: chest pain, palpitations, orthopnea, paroxysmal noc. dyspnea, edema, light headedness, other Gastrointestinal: denies: nausea, vomiting, abdominal pain, diarrhea, constipation, melena, hematochezia, other Genitourinary: denies: dysuria, frequency, incontinence, hematuria, retention, other - Medication Medications: Active Medications Generic Name Dose Route Start Last Admin Trade Name Freq PRN Reason Stop Dose Admin Sodium Chloride 1,000 mls @ 75 mls/hr 08/11/20 17:30 08/12/20 05:43 Normal Saline 0.9% IV 1,000 mls .[id number] SELIN Administration Iron/Minerals/Multivitamins 1 tab 08/12/20 09:00 08/12/20 08:39 Multivitamin W/ Minerals 1 Tab PO 1 tab DAILY SELIN Administration - Exam Neck: negative: supple, symmetric, no JVD, no thyromegaly, no lymphadenopathy, no carotid bruit, JVD Heart: negative: RRR, no murmur, no gallops, no rubs, normal peripheral pulses, irregular, diminshed peripheral pulses, murmur present, II/IV, III/IV Respiratory: negative: CTAB, no wheezes, no rales, no ronchi, normal chest expansion, no tachypnea, normal percussion, rales, rhonchi, tachypneic, wheezes Hosp A/P (1) GI bleed Code(s): K92.2 - GASTROINTESTINAL HEMORRHAGE, UNSPECIFIED Status: Acute (2) Anemia Code(s): D64.9 - ANEMIA, UNSPECIFIED Status: Acute (3) CAD (coronary artery disease) Code(s): I25.10 - ATHSCL HEART DISEASE OF [place] CORONARY ARTERY W/O ANG PCTRS Status: Chronic (4) DM2 (diabetes mellitus, type 2) Status: Chronic Qualifiers: Diabetes mellitus complication status: with hyperglycemia (5) HTN (hypertension) Code(s): I10 - ESSENTIAL (PRIMARY) HYPERTENSION Status: Chronic - Plan Patient received 1 unit of PRBC. She has active bleed noted in WBC scan in the descending colon. GI notified. Patient to go for colonoscopy now. Will check H&H every 6 hours. 08/12 status post colonoscopy no intervention. Will check H&H. Diet advance. Patient has not had any bloody bowel movements.
[2020-08-12 15:24] LABS: #Basophils 0.1 thou/uL (0.0-0.2); #Eosinphils 0.3 thou/uL (0.0-0.7); #Lymphocytes 3.1 thou/uL (1.20-3.40); #Monocytes 0.7 thou/uL (0.11-0.59); #Neutrophils 4.4 thou/uL (1.40-6.50); %Basophils 0.6 % (0.0-1.0); %Eosinophils 3.5 % (0.0-10.0); %Lymphocytes 36.1 % (21.0-51.0); %Neutrophils 51.8 % (42.0-75.0); Hemoglobin 7.2 g/dL (12.0-16.0); Mean Corpuscular HGB CONC 31.5 g/dL (32.0-36.0); Mean Corpuscular Hemoglobin 28.2 pg (27.0-31.0); Mean Corpuscular Volume 89.4 fL (78.0-98.0); Mean Platelet Volume 6.9 fL (7.4-10.4); Platelet Count 295 thou/uL (130-400); RBC Distribution Width 13.8 % (11.5-14.5); Red Blood Cell (RBC) Count 2.56 mill/uL (4.20-5.40); White Blood Cell (WBC) Count 8.5 thou/uL (4.8-10.8)
[2020-08-13 06:35] LABS: #Basophils 0.1 thou/uL (0.0-0.2); #Eosinphils 0.3 thou/uL (0.0-0.7); #Lymphocytes 3.3 thou/uL (1.20-3.40); #Monocytes 0.7 thou/uL (0.11-0.59); #Neutrophils 4.7 thou/uL (1.40-6.50); %Basophils 0.7 % (0.0-1.0); %Eosinophils 2.9 % (0.0-10.0); %Monocytes 7.8 % (0.0-10.0); %Neutrophils 51.6 % (42.0-75.0); Hemoglobin 6.9 g/dL (12.0-16.0); Mean Corpuscular HGB CONC 33.1 g/dL (32.0-36.0); Mean Corpuscular Hemoglobin 29.6 pg (27.0-31.0); Mean Corpuscular Volume 89.4 fL (78.0-98.0); Mean Platelet Volume 7.2 fL (7.4-10.4); Platelet Count 287 thou/uL (130-400); RBC Distribution Width 13.9 % (11.5-14.5); Red Blood Cell (RBC) Count 2.34 mill/uL (4.20-5.40)
--- NOTE | 2020-08-13 08:25 | OP ---
DATE OF PROCEDURE: 08/11/2020 PREPROCEDURE DIAGNOSES: 1. Recurrent lower gastrointestinal bleeding, suspected to be diverticular. 2. Recent admission for similar event one week ago with EGD and colonoscopy on 08/04, being nondiagnostic except for lyon-diverticulosis coli. One polyp was taken off and the site was clipped at that time. 3. Plan for rapid endoscopy unprepped as the patient had a positive tagged blood scan earlier today to evaluate for possible diverticular source and control or post polypectomy bleeding. POSTPROCEDURE DIAGNOSES: 1. Old blood with no active bleeding was noted in the descending and sigmoid colon up to about 50 cm from the anorectal verge. Above this, there was brown formed stool with no signs of bleeding. 2. There was lyon-diverticulosis coli with no bleeding sites identified. No active bleeding. 3. There was a hemoclip noted with no signs of recent bleeding from this area from the previous polypectomy site. RECOMMENDATIONS: Monitor hemoglobin and hematocrit, IV fluids low level, full liquid diet. We will follow along with you. ANESTHESIA: TIVA. DESCRIPTION OF PROCEDURE: After the patient was informed of the risks, benefits, and possible complications of endoscopy including perforation, reaction to medication, and aspiration, informed consent was obtained. The patient was brought to endoscopy suite, where she was sedated in gradual fashion. Once she was comfortable, rectal examination was performed. The endoscope was advanced through the anal canal to about 50 cm from the anorectal verge. At this point in time, there was brown stool was encountered below this. There was old dark blood, but no clots, that was coating the fraire of the colon and there was lyon-diverticulosis coli all the way down to the rectum. No bleeding sites were identified in the diverticula. No previous bleeding sites or polypectomy sites were noted and no bleeding was noted from the clipped polypectomy site. Retroflexed views showed just old blood in the rectal vault. The scope was returned to forward position and removed. The patient tolerated the procedure well. There were no complications. Job ID: [id number]
[2020-08-13] MEDS: Sodium Chloride 0.9% 1,000 ML IV SCH ×2 (08:56→21:44)
[2020-08-13] MEDS: Multivitamin W/ Minerals 1 TAB PO SCH (08:56)
--- NOTE | 2020-08-13 14:57 | PDOC.HOSPP ---
- Subjective Encounter Date: 08/13/20 Encounter Time: 10:00 Subjective: Patient up in bed no complaints. - Objective Vital Signs & Weight: Vital Signs (12 hours) Temp Pulse Pulse Resp BP BP Pulse Ox 08/13/20 12:25 98.6 F 71 16 128/71 98 08/13/20 12:03 98.5 F 76 16 117/62 98 08/13/20 10:45 98.4 F 69 18 125/66 99 08/13/20 08:20 98.2 F 85 18 130/63 99 Weight Weight 177 lb I&O: 08/12/20 08/13/20 08/14/20 06:59 06:59 06:59 Intake Total 830 2380 0 Balance 830 2380 0 Result Diagrams: 08/13/20 05:41 08/11/20 21:58 Hospitalist ROS - Review of Systems Cardiovascular: denies: chest pain, palpitations, orthopnea, paroxysmal noc. dyspnea, edema, light headedness, other Gastrointestinal: denies: nausea, vomiting, abdominal pain, diarrhea, constipation, melena, hematochezia, other Genitourinary: denies: dysuria, frequency, incontinence, hematuria, retention, other - Medication Medications: Active Medications Generic Name Dose Route Start Last Admin Trade Name Freq PRN Reason Stop Dose Admin Sodium Chloride 1,000 mls @ 75 mls/hr 08/11/20 17:30 08/13/20 08:56 Normal Saline 0.9% IV 1,000 mls .[id number] SELIN Administration Iron/Minerals/Multivitamins 1 tab 08/12/20 09:00 08/13/20 08:56 Multivitamin W/ Minerals 1 Tab PO 1 tab DAILY SELIN Administration - Exam Neck: negative: supple, symmetric, no JVD, no thyromegaly, no carotid bruit, JVD Heart: negative: RRR, no murmur, no gallops, no rubs, normal peripheral pulses, irregular, diminshed peripheral pulses, murmur present, II/IV, III/IV Respiratory: negative: CTAB, no wheezes, no rales, no ronchi, normal chest expansion, no tachypnea, normal percussion, rales, rhonchi, tachypneic, wheezes Gastrointestinal: negative: soft, non-tender, non-distended, normal bowel sounds, no palpable masses, no hepatomegaly, no splenomegaly, no bruit, no guarding, no rigidity, tender to palpation, distended, diminished bowl sounds, voluntary guarding Hosp A/P (1) GI bleed Code(s): K92.2 - GASTROINTESTINAL HEMORRHAGE, UNSPECIFIED Status: Acute (2) Anemia Code(s): D64.9 - ANEMIA, UNSPECIFIED Status: Acute (3) CAD (coronary artery disease) Code(s): I25.10 - ATHSCL HEART DISEASE OF [place] CORONARY ARTERY W/O ANG PCTRS Status: Chronic (4) DM2 (diabetes mellitus, type 2) Status: Chronic Qualifiers: Diabetes mellitus complication status: with hyperglycemia (5) HTN (hypertension) Code(s): I10 - ESSENTIAL (PRIMARY) HYPERTENSION Status: Chronic - Plan Patient received 1 unit of PRBC. She has active bleed noted in WBC scan in the descending colon. GI notified. Patient to go for colonoscopy now. Will check H&H every 6 hours. 08/12 status post colonoscopy no intervention. Will check H&H. Diet advance. Patient has not had any bloody bowel movements. 08/13 patient's H&H low today we will give 1 unit PRBC. Patient asymptomatic. Patient had 2 bowel movements states they were small no bright blood noted.
--- NOTE | 2020-08-13 17:37 | PRG ---
DATE OF SERVICE: 08/13/2020 SUBJECTIVE: Ms. Gonzalez is resting in bed. She has been on a diet. She states that she had one bout of old blood and the second around noon today with no bleeding. She is receiving a unit of blood now. Her hemoglobin dropped to 6.9. She feels well without shortness of breath, chest pain, dyspnea, or abdominal pain. MEDICATIONS: 1. Tylenol. 2. Multivitamin. 3. Normal saline 75. OBJECTIVE: VITAL SIGNS: Temperature 99.3, pulse 76, blood pressure 129/76. LUNGS: Clear. HEART: Regular without clicks or murmurs. ABDOMEN: Soft, nontender. There is no rebound or guarding. LABORATORY DATA: Hemoglobin was 7.2 at 1500 yesterday, 6.9 this morning. White count 9, . BUN and creatinine are 11 and 0.8. Sodium 144. BUN and creatinine, that was done today. ASSESSMENT: Lower gastrointestinal bleed, likely diverticular or related to previous polypectomy site, although no bleeding was seen at the emergent sigmoidoscopy yesterday despite a positive tagged blood cell scan few hours before that. Presently, she is stable. I suspect that her bleeding scan . Drop in hemoglobin is probably just equilibration with 1 unit transfusion and continued observation this. Job ID: [id number]
[2020-08-14 05:59] LABS: #Basophils 0.1 thou/uL (0.0-0.2); #Eosinphils 0.3 thou/uL (0.0-0.7); #Lymphocytes 3.2 thou/uL (1.20-3.40); #Monocytes 0.8 thou/uL (0.11-0.59); %Basophils 0.6 % (0.0-1.0); %Eosinophils 2.8 % (0.0-10.0); %Lymphocytes 34.6 % (21.0-51.0); %Monocytes 8.7 % (0.0-10.0); %Neutrophils 53.3 % (42.0-75.0); Hemoglobin 8.5 g/dL (12.0-16.0); Mean Corpuscular HGB CONC 32.7 g/dL (32.0-36.0); Mean Corpuscular Hemoglobin 29.1 pg (27.0-31.0); Mean Corpuscular Volume 89.2 fL (78.0-98.0); Mean Platelet Volume 6.9 fL (7.4-10.4); Platelet Count 286 thou/uL (130-400); Red Blood Cell (RBC) Count 2.91 mill/uL (4.20-5.40); White Blood Cell (WBC) Count 9.3 thou/uL (4.8-10.8)
[2020-08-14 06:18] LABS: Anion Gap 11 mmol/L (10-20); BUN (Urea Nitrogen) 4 mg/dL (9.8-20.1); Calc. Creatinine Clearance 67 mL/min (70-130); Calcium 7.7 mg/dL (7.8-10.44); Carbon Dioxide 23 mmol/L (23-31); Chloride 112 mmol/L (98-107); Glucose 94 mg/dL (83-110); Potassium 3.6 mmol/L (3.5-5.1); Sodium 142 mmol/L (136-145)
[2020-08-14] MEDS: Multivitamin W/ Minerals 1 TAB PO SCH (09:21)
--- NOTE | 2020-08-14 11:50 | PRG ---
DATE OF SERVICE: 08/14/2020 SUBJECTIVE: Ms. Gonzalez reports she had some brown stool with drops of blood around it. Her daughter confirms that was this morning. She did get a unit of blood yesterday. She has no pain. OBJECTIVE: VITAL SIGNS: Temperature is 98, pulse 73, blood pressure 138/59. ABDOMEN: Soft, nontender. There is no rebound. There is no guarding. LABORATORY DATA: Hemoglobin is 8.5, up from 6.9 yesterday. Transfusions this admission include 1 unit yesterday and 1 unit on the . INR is 1.1 on the . Sodium 142, potassium 3.6, BUN and creatinine 4 and 0.79. ASSESSMENT: Lower gastrointestinal bleeding likely diverticular, possibly post-polypectomy. It seems to be resolving. RECOMMENDATIONS: Keep in the hospital one more day until her stool returns to normal color as this is the 2nd admission for lower GI bleeding. Job ID: [id number]
[2020-08-14] MEDS: Sodium Chloride 0.9% 1,000 ML IV SCH ×2 (13:59→14:50)
[2020-08-15 07:03] LABS: Hemoglobin 8.4 g/dL (12.0-16.0)
[2020-08-15 07:53] VITALS: BP 150/75; TEMP 98.7
[2020-08-15] MEDS: Multivitamin W/ Minerals 1 TAB PO SCH (09:07)
--- NOTE | 2020-08-15 09:57 | PDOC.HOSPP ---
- Subjective Encounter Date: 08/14/20 - Objective Vital Signs & Weight: Vital Signs (12 hours) Temp Pulse Resp BP Pulse Ox 08/15/20 08:00 98 08/15/20 07:52 98.7 F 72 18 150/75 H 98 Weight Weight 177 lb I&O: 08/14/20 08/15/20 08/16/20 06:59 06:59 06:59 Intake Total 1560 2330 Balance 1560 2330 Result Diagrams: 08/15/20 06:50 08/14/20 05:34 Hospitalist ROS - Medication Medications: Active Medications Generic Name Dose Route Start Last Admin Trade Name Freq PRN Reason Stop Dose Admin Iron/Minerals/Multivitamins 1 tab 08/12/20 09:00 08/15/20 09:07 Multivitamin W/ Minerals 1 Tab PO 1 tab DAILY SELIN Administration Hosp A/P (1) GI bleed Code(s): K92.2 - GASTROINTESTINAL HEMORRHAGE, UNSPECIFIED Status: Acute (2) Anemia Code(s): D64.9 - ANEMIA, UNSPECIFIED Status: Acute (3) CAD (coronary artery disease) Code(s): I25.10 - ATHSCL HEART DISEASE OF [place] CORONARY ARTERY W/O ANG PCTRS Status: Chronic (4) DM2 (diabetes mellitus, type 2) Status: Chronic Qualifiers: Diabetes mellitus complication status: with hyperglycemia (5) HTN (hypertension) Code(s): I10 - ESSENTIAL (PRIMARY) HYPERTENSION Status: Chronic - Plan Patient received 1 unit of PRBC. She has active bleed noted in WBC scan in the descending colon. GI notified. Patient to go for colonoscopy now. Will check H&H every 6 hours. 08/12 status post colonoscopy no intervention. Will check H&H. Diet advance. Patient has not had any bloody bowel movements. 08/13 patient's H&H low today we will give 1 unit PRBC. Patient asymptomatic. Patient had 2 bowel movements states they were small no bright blood noted.
--- NOTE | 2020-08-15 12:04 | PRG ---
DATE OF SERVICE: 08/15/2020 SUBJECTIVE: Ms. Valentine has had no bleeding today. OBJECTIVE: VITAL SIGNS: Temperature is 98, pulse 72, blood pressure 150/57. ABDOMEN: Soft, nontender. LABORATORY DATA: Hemoglobin 8.4, was 8.5 yesterday morning. ASSESSMENT: 1. Lower gastrointestinal bleeding, resolved. I think if she stays stable, she can go home today. 2. Polyps removed via colonoscopy on last admission. I have conveyed to her that those were benign. 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 Job ID: [id number]
--- NOTE | 2020-08-15 15:35 | PDOC.DS.DS ---
Provider - Provider Date of Admission: 08/10/20 19:26 Date of Discharge: 08/15/20 Admitting Provider: Holden Cotton MD Consultations: Gastroentrology Primary Care Physician: Reji Gonzalez MD Course - Hospital Course Hospital Course: Patient is a very pleasant 85-year-old female who presents to the hospital with bright blood per rectum. She has had a history of diverticular bleeds in the past. Patient's RBC scan indicated GI bleed in the descending colon. She underwent a colonoscopy on 08/13. Colonoscopy indicated old blood with no ac tive bleeding noted in the descending and sigmoid colon. There was pandiverticulosis coil with no bleeding sites. Patient at this time was monitored she was given a total of 2 units of PRBCs. Her H&H continued to be stable. She tolerated her diet well and she was discharged home. She was on aspirin. I did call her PCP Dr. Gonzalez and I also went to the chart to see if she has any history of stents. Patient has no history of CAD she was put on aspirin given her multiple risk factors. At this time I have discontinue the aspirin. She will follow with her primary and GI. Resuscitation Status: 08/10/20 19:40 Resuscitation Status Routine Resuscitation Status: FULL: Full Resuscitation - Labs Lab Results: 08/15/20 06:50 08/14/20 05:34 Abnormal Lab Results - Last 48 hrs 08/10/20 15:15: Crossmatch See Detail 08/14/20 05:34: Chloride 112 H, BUN 4 L, Calcium 7.7 L 08/14/20 05:34: RBC 2.91 L, Hgb 8.5 L, Hct 26.0 L, MPV 6.9 L, Monocytes # 0.8 H 08/15/20 06:50: Hgb 8.4 L, Hct 25.6 L - Physical Exam Vitals: Vital Signs (12 hours) Temp Pulse Resp BP Pulse Ox 08/15/20 08:00 98 08/15/20 07:52 98.7 F 72 18 150/75 H 98 Weight Weight 177 lb Physical Exam: The patient was seen and examined on the day of discharge. Problem - Problem (1) GI bleed Code(s): K92.2 - GASTROINTESTINAL HEMORRHAGE, UNSPECIFIED Status: Acute (2) Anemia Code(s): D64.9 - ANEMIA, UNSPECIFIED Status: Acute (3) CAD (coronary artery disease) Code(s): I25.10 - ATHSCL HEART DISEASE OF [place] CORONARY ARTERY W/O ANG PCTRS Status: Chronic (4) DM2 (diabetes mellitus, type 2) Status: Chronic Qualifiers: Diabetes mellitus complication status: with hyperglycemia (5) HTN (hypertension) Code(s): I10 - ESSENTIAL (PRIMARY) HYPERTENSION Status: Chronic Plan - Discharge Medications Home Medications: Medication Instructions Recorded Confirmed Type Amlodipine Besylate [amLODIPine 5 mg PO QAM 10/29/17 08/11/20 History Besylate] Multivit-Min/Iron/Folic/Lutein 1 tab PO DAILY 10/29/17 08/11/20 History [Centrum Silver Women] Acetaminophen [Tylenol Regular 650 mg PO Q4H PRN 08/01/20 08/11/20 History Strength] Allergies: clindamycin Allergy (Verified 08/01/20 20:17) Penicillins Allergy (Verified 08/01/20 20:17) sulfamethoxazole [From Septra] Allergy (Verified 08/01/20 20:17) trimethoprim [From Septra] Allergy (Verified 08/01/20 20:17) - Discharge Instructions Discharge Instructions:: Follow up with your primary care doctor. Activity:: Activity as Tolerated Nourishment:: Heart Healthy Diet - Follow up Plan Referrals: Perry Dukes MD [Active] - Reji Gonzalez MD [Primary Care Provider] - Disposition: HOME Quality - Care Measures CORE MEASURES:: N/A
--- NOTE | 2020-08-18 04:05 | PQF ---
CLINICAL DOCUMENTATION CLARIFICATION FORM: Dear : Dee Lanza MD Date / Time: 08/18/2020 Please exercise your independent, professional judgment in responding to the clarification form. Clinical indicators are provided on the bottom of this form for your review Please check appropriate box(es): [ ] Acute blood loss anemia [ ] Post-op anemia related to acute blood loss [ ] Anemia: [ ] Aplastic [ ] Nutritional [ ] Drug induced (specify) [ ] Hemolytic [ ] Hereditary [ ] Acquired [ ] Autoimmune [ ] Non-autoimmune [ ] Enzyme disorder [ ] Chronic Anemia: [ ] Blood loss [ ] Hemolytic [ ] Simple [ ] Due to Vitamin B12 Deficiency [ ] Other [ ] Anemia of Chronic Disease (please specify) [ ] Other diagnosis (Please specify if any) [ ] Unable to determine In addition, please specify: Present on Admission (POA): [ ] Yes [ ] No [ ] Unable to determine Physician Signature: Date/Time: For continuity of documentation, please document condition throughout progress notes and discharge summary. Thank You. To be completed by CDI/Coding staff for physician review: Present Clinical Indicators - Signs / Symptoms / Labs Results and Location in Medical Record [x] Anemia secondary to lower GI bled H&P on 08/10 [ ] Hypotension [x] hemoglobin dropped to 6.9 Progress notes on 08/13 [x] Hct-.20.9 L Laboratory on 08/10 [x] Lower GI bleeding likely diverticular Progress notes on 08/14 [ ] Tachycardia Present Risk Factors Results and Location in Medical Record [x] Aged person 85 yrs H&P on 08/10 [ ] Fracture of long bones [ ] Neoplasm [ ] Malnutrition Present Treatments Results and Location in Medical Record [x] RBC transfused Transfusion on 08/10,08/13 [ ] Blood stimulating drugs (Procrit, Iron) CDS/Bandoleer Straightener Stamper Signature: AAS Phone #: Date/Time: 08/18/2020 This is a permanent part of the Medical Record [facility]
--- NOTE | 2020-08-20 13:30 | EKG ---
Test Reason : GI BLEED Blood Pressure : / mmHG Vent. Rate : 071 BPM Atrial Rate : 071 BPM P-R Int : 000 ms QRS Dur : 078 ms QT Int : 396 ms P-R-T Axes : 000 -09 012 degrees QTc Int : 430 ms Normal sinus rhythm Leftward axis Minimal voltage criteria for LVH, may be normal variant Abnormal ECG No change compared with prior Confirmed by STORMY THOMPSON DO ([id number]), editor in chief newspaper ERICA SAUCEDO ([id number]) on 08/20/2020 1:29:59 PM Referred By: DONNA Confirmed By:STORMY THOMPSON DO
== END 2020-08-15 18:21 | disposition home or self-care (01) | DRG 378 ==
LOC: ERS 14:42 → T4-A 19:26
PROVIDERS: ADMIT Student in an Organized Health Care Education/Training Program; ATTEND Student in an Organized Health Care Education/Training Program
PROC: 30233N1 Transfusion of Nonautologous Red Blood Cells into Peripheral Vein, Percutaneous Approach (ICD-10-PCS; 2020-08-10)
PROC: 0DJD8ZZ Inspection of Lower Intestinal Tract, Via Natural or Artificial Opening Endoscopic (ICD-10-PCS; principal; 2020-08-11)
DX: K57.31 Diverticulosis of large intestine without perforation or abscess with bleeding (principal); R71.0 Precipitous drop in hematocrit; N18.2 Chronic kidney disease, stage 2 (mild); M19.90 Unspecified osteoarthritis, unspecified site; Z96.641 Presence of right artificial hip joint; E87.6 Hypokalemia; D64.9 Anemia, unspecified; I12.9 Hypertensive chronic kidney disease with stage 1 through stage 4 chronic kidney disease, or unspecified chronic kidney disease; E11.22 Type 2 diabetes mellitus with diabetic chronic kidney disease; I25.10 Atherosclerotic heart disease of native coronary artery without angina pectoris; E04.9 Nontoxic goiter, unspecified; Z90.49 Acquired absence of other specified parts of digestive tract; Z90.710 Acquired absence of both cervix and uterus; Z98.890 Other specified postprocedural states; Z98.51 Tubal ligation status; Z79.899 Other long term (current) drug therapy; Z88.1 Allergy status to other antibiotic agents; Z88.0 Allergy status to penicillin; Z88.2 Allergy status to sulfonamides; Z88.8 Allergy status to other drugs, medicaments and biological substances; Z79.82 Long term (current) use of aspirin
CPT/HCPCS: 36415; 36430; 78278; 80048; 80053; 81003; 81015; 82550; 83605; 83690; 83735; 84484; 85014; 85018; 85025; 85610; 85730; 86850; 86900; 86901; 87635; 93005; A9604; J1644; J2704; J3475; J3480; J7050; P9016; U0003

== ENCOUNTER 2023-10-13 18:46 | Inpatient (IN) | payer OTHER ==
[2023-10-13] MEDS ORDERED: Ondansetron ODT 4 MG TAB PO PRN (20:01)
[2023-10-13] MEDS ORDERED: Ondansetron PF 4 MG/2 ML Vial IVP PRN (20:01)
[2023-10-13 23:17] LABS: CK (CPK) 167 U/L (29-168); Magnesium 2.4 mg/dL (1.6-2.6); Phosphorus 3.3 mg/dL (2.3-4.7)
[2023-10-14] MEDS: Acetaminophen 325 MG TAB PO PRN (00:25)
[2023-10-14 04:15] LABS: #Eosinphils 0.1 thou/uL (0.0-0.7); #Monocytes 0.6 thou/uL (0.11-0.59); #Neutrophils 3.6 thou/uL (1.40-6.50); %Basophils 0.6 % (0.0-1.0); %Eosinophils 1.1 % (0.0-10.0); %Lymphocytes 32.8 % (21.0-51.0); %Monocytes 9.8 % (0.0-10.0); %Neutrophils 55.4 % (42.0-75.0); Hematocrit 28.4 % (36.0-47.0); Hemoglobin 8.9 g/dL (12.0-16.0); Mean Corpuscular HGB CONC 31.3 g/dL (32.0-36.0); Mean Corpuscular Hemoglobin 28.3 pg (27.0-31.0); Mean Corpuscular Volume 90.4 fl (78.0-98.0); Mean Platelet Volume 11.4 fL (7.4-10.4); Platelet Count 183 10x3/uL (130-400); RBC Distribution Width 14.6 % (11.5-14.5); Red Blood Cell (RBC) Count 3.14 mill/uL (4.20-5.40); White Blood Cell (WBC) Count 6.5 10x3/uL (4.8-10.8)
[2023-10-14 04:48] LABS: Anion Gap 12 mmol/L (10-20); BUN (Urea Nitrogen) 17 mg/dL (9.8-20.1); Calc. Creatinine Clearance 32 mL/min (70-130); Carbon Dioxide 24 mmol/L (23-31); Chloride 107 mmol/L (98-107); Estimated GFR 48; Glucose 87 mg/dL (83-110); Potassium 4.5 mmol/L (3.5-5.1); Sodium 138 mmol/L (136-145)
[2023-10-14] MEDS: cefTRIAXone\\ROCEPHIN 1 GM in Sodium Chloride 0.9% 100 ML IVPB SCH (15:57)
[2023-10-15] MEDS: FLU VACC QS2023(65UP)/MF59C/PF 60 MCG/0.5 ML SYRINGE IM ONE (02:00)
[2023-10-15 04:42] LABS: #Eosinphils 0.1 thou/uL (0.0-0.7); #Monocytes 0.6 thou/uL (0.11-0.59); #Neutrophils 3.8 thou/uL (1.40-6.50); %Basophils 0.7 % (0.0-1.0); %Eosinophils 2.2 % (0.0-10.0); %Lymphocytes 24.5 % (21.0-51.0); %Neutrophils 62.4 % (42.0-75.0); Hematocrit 27.4 % (36.0-47.0); Hemoglobin 8.6 g/dL (12.0-16.0); Mean Corpuscular HGB CONC 31.4 g/dL (32.0-36.0); Mean Corpuscular Hemoglobin 28.6 pg (27.0-31.0); Mean Platelet Volume 11.9 fL (7.4-10.4); Platelet Count 178 10x3/uL (130-400); RBC Distribution Width 14.4 % (11.5-14.5); Red Blood Cell (RBC) Count 3.01 mill/uL (4.20-5.40)
[2023-10-15 05:58] LABS: Anion Gap 15 mmol/L (10-20); BUN (Urea Nitrogen) 16 mg/dL (9.8-20.1); Calc. Creatinine Clearance 32 mL/min (70-130); Calcium 8.6 mg/dL (7.8-10.44); Carbon Dioxide 19 mmol/L (23-31); Chloride 107 mmol/L (98-107); Estimated GFR 49; Glucose 103 mg/dL (83-110); Iron 19 ug/dL (50-170); Iron Binding Capacity, Total 153 mcg/dL (265-497); Potassium 3.9 mmol/L (3.5-5.1); Sodium 137 mmol/L (136-145)
[2023-10-15] MEDS: Amlodipine 5 MG TAB PO SCH (08:45)
[2023-10-15] MEDS: Multivit, Therapeutic 1 TAB PO SCH (08:45)
[2023-10-15] MEDS: Allopurinol 100 MG TAB PO SCH (08:45)
[2023-10-15] MEDS ORDERED: Non-Formulary Item 1 EACH (Multivit-Min/Iron/Folic/Lutein [Centrum Silver Women] 1 TABLET PO SCH (09:00)
[2023-10-15] MEDS ORDERED: Meclizine HCl 25 MG TAB PO PRN (16:16)
[2023-10-16 07:04] LABS: #Eosinphils 0.1 thou/uL (0.0-0.7); #Monocytes 0.6 thou/uL (0.11-0.59); #Neutrophils 2.8 thou/uL (1.40-6.50); %Basophils 0.4 % (0.0-1.0); %Eosinophils 2.8 % (0.0-10.0); %Lymphocytes 28.8 % (21.0-51.0); %Monocytes 11.9 % (0.0-10.0); %Neutrophils 55.9 % (42.0-75.0); Hematocrit 28.6 % (36.0-47.0); Mean Corpuscular HGB CONC 31.5 g/dL (32.0-36.0); Mean Corpuscular Hemoglobin 28.4 pg (27.0-31.0); Mean Corpuscular Volume 90.2 fl (78.0-98.0); Mean Platelet Volume 11.8 fL (7.4-10.4); Platelet Count 184 10x3/uL (130-400); RBC Distribution Width 14.3 % (11.5-14.5); Red Blood Cell (RBC) Count 3.17 mill/uL (4.20-5.40)
[2023-10-16 07:51] LABS: Anion Gap 13 mmol/L (10-20); BUN (Urea Nitrogen) 15 mg/dL (9.8-20.1); Calc. Creatinine Clearance 41 mL/min (70-130); Calcium 8.8 mg/dL (7.8-10.44); Carbon Dioxide 22 mmol/L (23-31); Chloride 107 mmol/L (98-107); Estimated GFR 65; Glucose 97 mg/dL (83-110); Potassium 3.6 mmol/L (3.5-5.1); Sodium 138 mmol/L (136-145)
[2023-10-16] MEDS ORDERED: Iron Sucrose Complex 200 MG in Sodium Chloride 0.9% 100 ML IVPB SCH (09:15)
[2023-10-16] MEDS: Iron, Sodium Ferric Gluconate 250 MG in Sodium Chloride 0.9% 250 ML 250 ML IVPB SCH (10:48)
[2023-10-17 05:13] LABS: #Eosinphils 0.2 thou/uL (0.0-0.7); #Monocytes 0.5 thou/uL (0.11-0.59); #Neutrophils 2.3 thou/uL (1.40-6.50); %Basophils 0.6 % (0.0-1.0); %Eosinophils 3.4 % (0.0-10.0); %Lymphocytes 39.6 % (21.0-51.0); %Monocytes 10.1 % (0.0-10.0); %Neutrophils 46.1 % (42.0-75.0); Hematocrit 27.6 % (36.0-47.0); Hemoglobin 8.6 g/dL (12.0-16.0); Mean Corpuscular HGB CONC 31.2 g/dL (32.0-36.0); Mean Corpuscular Volume 89.9 fl (78.0-98.0); Mean Platelet Volume 12.2 fL (7.4-10.4); Platelet Count 194 10x3/uL (130-400); RBC Distribution Width 14.5 % (11.5-14.5); Red Blood Cell (RBC) Count 3.07 mill/uL (4.20-5.40); White Blood Cell (WBC) Count 5.1 10x3/uL (4.8-10.8)
[2023-10-17 05:41] LABS: Anion Gap 11 mmol/L (10-20); BUN (Urea Nitrogen) 17 mg/dL (9.8-20.1); Calc. Creatinine Clearance 35 mL/min (70-130); Carbon Dioxide 22 mmol/L (23-31); Chloride 109 mmol/L (98-107); Estimated GFR 54; Glucose 87 mg/dL (83-110); Potassium 3.7 mmol/L (3.5-5.1); Sodium 138 mmol/L (136-145)
[2023-10-17] MEDS: Ferrous Sulfate 325 MG TAB PO SCH (08:56)
[2023-10-19] MEDS ORDERED: Cefdinir 300 MG CAP PO SCH ×2 (11:00→21:00)
[2023-10-19 12:38] VITALS: BP 122/53; TEMP 98.8
== END 2023-10-19 12:28 | disposition swing bed (61) | DRG 149 ==
LOC: 2NO 19:44 → OBSVTOIN 10-14 14:50 → T4-A 10-18 14:20
PROVIDERS: ADMIT Physician Assistant; ATTEND Internal Medicine
DX: R42 Dizziness and giddiness (principal); N39.0 Urinary tract infection, site not specified; E44.0 Moderate protein-calorie malnutrition; Z16.39 Resistance to other specified antimicrobial drug; D64.9 Anemia, unspecified; N18.30 Chronic kidney disease, stage 3 unspecified; E61.1 Iron deficiency; I12.9 Hypertensive chronic kidney disease with stage 1 through stage 4 chronic kidney disease, or unspecified chronic kidney disease; Z88.0 Allergy status to penicillin; Z88.1 Allergy status to other antibiotic agents; Z88.2 Allergy status to sulfonamides; Z88.8 Allergy status to other drugs, medicaments and biological substances; Z79.899 Other long term (current) drug therapy; Z90.49 Acquired absence of other specified parts of digestive tract; Z90.710 Acquired absence of both cervix and uterus; Z98.890 Other specified postprocedural states; Z98.51 Tubal ligation status; Z68.20 Body mass index [BMI] 20.0-20.9, adult
CPT/HCPCS: 36415; 70551; 80048; 82274; 82550; 82728; 83540; 83550; 83735; 84100; 84439; 84443; 84481; 85025; 87077; 87086; 87186; 93306; 93880; J0696; J2916; J3490; J7050